=== PATIENT | female | born 1935 | race Caucasian/White ===

== ENCOUNTER 2017-04-11 17:47 | Emergency (ER) | payer MEDICARE, OTHER ==
[2017-04-11] MEDS ORDERED: NS 0.9% 1000 ML* 2,000 ML IV ONE (19:37)
[2017-04-11 19:52] LABS: Urine Bacteria Absent (Absent); Urine Bilirubin Negative (Negative); Urine Glucose Negative (Negative); Urine Nitrite Negative (Negative)
--- NOTE | 2017-04-11 19:56 | RAD ---
Indication: Hypertension. Single frontal view of the chest performed at 1940 hours was reviewed. Comparison is made with previous exam dated June 10, 2008. No mediastinal shift is noted. There is cardiomegaly noted. Lung hoover demonstrate no pleural fluid, pneumonia or pneumothorax. IMPRESSION: NO ACTIVE CARDIOPULMONARY DISEASE IS NOTED.
--- NOTE | 2017-04-11 20:24 | RAD ---
Indication: Hypertension, loss of peripheral vision. CT of the brain was performed without IV contrast. No prior studies available for comparison. Ventricular structures are midline. No midline shift is noted. The extraction spaces are unremarkable. There is no evidence of intracranial mass or hemorrhage. No other high or low density lesions are identified. Mastoid air cells and paranasal sinuses are otherwise unremarkable. IMPRESSION: No intracranial mass or hemorrhage is noted.
[2017-04-11 20:31] LABS: Hematocrit 41 % (35-47); Hemoglobin 13.7 g/dl (12.0-16.0); Mean Corpuscular HGB Conc 33 g/dl (31-36); Mean Corpuscular Hemoglobin 32 pg (27-31); Mean Corpuscular Volume 96 fL (80-97); Mean Platelet Volume 7 um3 (7.4-10.4); Red Cell Distribution Width 13 % (10.5-15); White Blood Count 8.3 10^3/ul (3.5-10.8)
[2017-04-11 20:47] LABS: Albumin 4.2 g/dL (3.2-5.2); BUN/Creatinine Ratio 20.3 (8-20); Calcium 9.1 mg/dL (8.6-10.3); EGFR African American 114.5 (>60); EGFR Non-African American 89.1 (>60); Globulin 3.3 g/dL (2-4); Potassium 3.7 mmol/L (3.5-5.0); Total Bilirubin 1.2 mg/dL (0.2-1.0); Total Protein 7.5 g/dL (6.4-8.9)
[2017-04-11 20:49] LABS: Troponin I 0.01 ng/mL (<0.04)
[2017-04-11 20:57] LABS: HDL Cholesterol 60.7 mg/dL
[2017-04-11] MEDS ORDERED: Iohexol 350* (CONTRAST) 500 ML MDV IV ONE (21:40)
[2017-04-11 21:57] LABS: Erythrocyte Sed Rate 10 mm/Hr (0-40)
--- NOTE | 2017-04-11 22:39 | RAD ---
Indication: Transient visual field loss. Contrast: Administered 80.0 ml of OMNIPAQUE 350 mgi/ml CTA of the neck and head was performed after IV contrast demonstration. Coronal and sagittal reconstructed images were obtained. 3-D reconstructive images were obtained. Atherosclerotic aorta is noted. There is an apparent right subclavian artery noted. The common carotid artery demonstrates no evidence of intimal wall thickening in either internal carotid artery although atherosclerosis is noted at the origin of both common carotid arteries. There is calcification at the carotid bulb bilaterally. No significant stenosis is noted. No evidence of carotid artery dissection is noted. The intracranial carotid arteries demonstrates atherosclerosis in the intracavernous portion. CTA of the head demonstrates normal anterior and middle cerebral arteries with no evidence of aneurysmal dilatation. No branch occlusion is identified. Basilar artery and posterior cerebral arteries are unremarkable. IMPRESSION: There is an aberrant right subclavian artery noted. Calcific plaque is noted at the origins of both common carotid arteries are arising from the aorta. Calcifications are noted at the origins of both internal carotid arteries. CTA of the head demonstrates no aneurysmal dilatation or branch occlusion.
[2017-04-11 23:10] VITALS: BP 191/69
--- NOTE | 2017-04-12 10:54 | ED ---
Talha Hernandez Rebecca, scribed for Giulia Valdes MD on 04/11/17 at 1904 . Throat Pain/Nasal Congestion - HPI Summary HPI Summary: Pt is an 81 y/o F who presents to ED accompanied by with a CC of intermittent R eye blind spot. Sx began suddenly today at 0900, lasted until approximately 1130, when it spontaneously resolved. Another less acute episode began suddenly at 1730 en route to the ED, which spontaneously resolved in 30 minutes. Blind spot is not currently present. Sx aggravated by nothing, alleviated by spontaneous resolution. Additionally c/o intermittent acute on chronic "waviness" and "sparkles" in her vision that has been increasing in frequency in the last 2 days. States that she has experienced similar episodes of "waviness" for the past several years and when evaluated, was deemed not concerning. Her additionally reports difficulty focusing with her R eye. Currently ranks pain as 0/10, being in no pain. Denies any changes in urinary frequency. Denies slurred speech, facial droop, aphasia. Denies MARKS. PMHx HTN (takes Deltiazam - took this AM as usual). Reports that her BP at home has been normal, yesterday it was approximately 135 systolic. Is not on any blood thinners. Does not take ASA. Takes Amoxicillin for any procedures because of bilateral knee replacements. She was evaluated earlier today by Dr. Flores's office at 1045 this morning who, per her , reported that "physically the eye looked fine" and that "there were floaters in it, but there were no issues inside the cell itself." Gave Dx of vitreous degeneration, bilateral and migraine with aura, not intractable, w/ o status migrainosus. After consulting with her PCP, Dr. Bhakta, she was advised the pt be evaluated in the ED to r/o TIA. - History of Current Complaint Chief Complaint: EDEyeProblem Hx Obtained From: Patient, Family/Clerical Warehouseman - (Pined[place]) Onset/Duration: Sudden Onset, Resolved Severity: Moderate Cough: None - Epiglottits Risk Factors Epiglottis Risk Factors: Negative - Allergies/Home Medications Allergies/Adverse Reactions: Allergies Allergy/AdvReac Type Severity Reaction Status Date / Time Nitrofurantoin Allergy Intermediate Rash Verified 04/11/17 17:49 [From Macrodantin] Morphine Allergy Mild Nausea Verified 04/11/17 17:49 PMH/Surg Hx/FS Hx/Imm Hx Previously Healthy: No Endocrine/Hematology History: Denies: Hx Diabetes Cardiovascular History: Reports: Hx Hypertension Respiratory History: Denies: Hx Asthma, Hx Chronic Obstructive Pulmonary Disease (COPD) History: Denies: Hx Dialysis Musculoskeletal History: Reports: Hx Arthritis - CORA KNEE AND ONE HIP REPLACED Sensory History: Reports: Hx Contacts or Glasses - GLASSES, Hx Hearing Aid Opthamlomology History: Reports: Hx Contacts or Glasses - GLASSES Neurological History: Denies: Hx Dementia, Hx Seizures Psychiatric History: Reports: Hx Anxiety - OK WITH MEDS - Surgical History Surgery Procedure, Year, and Place: 2002 WISDOM TEETH [place]. 2007 L TOTAL KNEE [facility]. 2008 RT TOTAL KNEE [facility]. 2010 L TOTAL HIP [facility]. Hx Anesthesia Reactions: No Infectious Disease History: No Infectious Disease History: Denies: Traveled Outside the [place] in Last 30 Days - Family History Known Family History: Positive: Hypertension - Social History Occupation: Retired Lives: With Family Alcohol Use: Rare Substance Use Type: Reports: None Smoking Status (MU): Never Smoked Tobacco Review of Systems Constitutional: Negative Positive: Other - Intermittent R eye blind spot - resolved; intermittent acute on chronic "waviness" and "sparkles" in vision - resolved Cardiovascular: Negative Respiratory: Negative Negative: frequency Skin: Negative Neurological: Other - Denies facial droop, aphasia Negative: Headache, Slurred Speech All Other Systems Reviewed And Are Negative: Yes Physical Exam Triage Information Reviewed: Yes Vital Signs On Initial Exam: Initial Vitals Temp Pulse Resp BP Pulse Ox 98.6 F 66 16 187/78 98 04/11/17 17:51 04/11/17 17:51 04/11/17 17:51 04/11/17 17:51 04/11/17 17:51 Vital Signs Reviewed: Yes Appearance: Positive: No Pain Distress, Well-Nourished, Ill-Appearing - Mild Skin: Positive: Warm, Skin Color Reflects Adequate Perfusion, Dry Eyes: Positive: IVON, Conjunctiva Clear, Other: - Pupils are 3 mm; Discs are sharp and flat and there is no hemorrhage; Normal visual hoover by confrontation ; Pt Did not do cover/uncover test ENT: Positive: Normal ENT inspection, Pharynx normal, TMs normal Neck: Positive: Supple Respiratory/Lung Sounds: Positive: Clear to Auscultation, Breath Sounds Present , Other - No respiratory distress Cardiovascular: Positive: RRR, Other - Brisk capillary refill, Pulses normal. Negative: Murmur Abdomen Description: Positive: Nontender, No Organomegaly, Soft Musculoskeletal: Positive: Normal, Strength/ROM Intact Neurological: Positive: Sensory/Motor Intact - Motor function 5/5, Alert, Oriented to Person Place, Time, CN Intact II-III, Reflexes Intact, Normal Gait. Negative: Receptive Aphasia, Expressive Aphasia, Disoriented, Facial Droop, Focal Deficit @, Slurred Speech Psychiatric: Positive: Normal - Elizabeth Coma Scale Coma Scale Total: 15 Diagnostics - Vital Signs Vital Signs Temp Pulse Resp BP Pulse Ox 04/11/17 17:51 98.6 F 66 16 187/78 98 - Laboratory Lab Results: Lab Results 04/11/17 04/11/17 04/11/17 Range/Units 17:51 20:26 20:26 WBC 8.3 (3.5-10.8) 10^3/ul RBC 4.30 (4.0-5.4) 10^6/ul Hgb 13.7 (12.0-16.0) g/dl Hct 41 (35-47) % MCV 96 (80-97) fL MCH 32 H (27-31) pg MCHC 33 (31-36) g/dl RDW 13 (10.5-15) % Plt Count 288 (150-450) 10^3/ul MPV 7 L (7.4-10.4) um3 Neut % (Auto) 65.6 (38-83) % Lymph % (Auto) 23.7 L (25-47) % Edmunds % (Auto) 8.5 (1-9) % Eos % (Auto) 1.2 (0-6) % Baso % (Auto) 1.0 (0-2) % Absolute Neuts (auto) 5.5 (1.5-7.7) 10^3/ul Absolute Lymphs (auto) 2.0 (1.0-4.8) 10^3/ul Absolute Monos (auto) 0.7 (0-0.8) 10^3/ul Absolute Eos (auto) 0.1 (0-0.6) 10^3/ul Absolute Basos (auto) 0.1 (0-0.2) 10^3/ul Absolute Nucleated RBC 0 10^3/ul Nucleated RBC % 0 ESR 10 (0-40) mm/Hr INR (Anticoag Therapy) 0.96 (0.89-1.11) APTT 30.2 (26.0-36.3) seconds Sodium (133-145) mmol/L Potassium (3.5-5.0) mmol/L Chloride (101-111) mmol/L Carbon Dioxide (22-32) mmol/L Anion Gap (2-11) mmol/L BUN (6-24) mg/dL Creatinine (0.51-0.95) mg/dL Est GFR ( Amer) (>60) Est GFR (Non-Af Amer) (>60) BUN/Creatinine Ratio (8-20) Glucose (70-100) mg/dL Lactic Acid (0.5-2.0) mmol/L Calcium (8.6-10.3) mg/dL Total Bilirubin (0.2-1.0) mg/dL AST (13-39) U/L ALT (7-52) U/L Alkaline Phosphatase (34-104) U/L Troponin I (<0.04) ng/mL Total Protein (6.4-8.9) g/dL Albumin (3.2-5.2) g/dL Globulin (2-4) g/dL Albumin/Globulin Ratio (1-3) Triglycerides mg/dL Cholesterol mg/dL LDL Cholesterol mg/dL HDL Cholesterol mg/dL Urine Color Yellow Urine Appearance Clear Urine pH 6.0 (5-9) Ur Specific Downey 1.010 (1.010-1.030) Urine Protein Negative (Negative) Urine Ketones Negative (Negative) Urine Blood 2+ H (Negative) Urine Nitrate Negative (Negative) Urine Bilirubin Negative (Negative) Urine Urobilinogen Negative (Negative) Ur Leukocyte Esterase Trace H (Negative) Urine WBC (Auto) Trace(0-5/hpf) (Absent) Urine RBC (Auto) 3+(>10/hpf) H (Absent) Ur Squamous Epith Cells Present H (Absent) Urine Bacteria Absent (Absent) Hyaline Casts Present H (Absent) Urine Glucose Negative (Negative) 04/11/17 04/11/17 Range/Units 20:26 20:26 WBC (3.5-10.8) 10^3/ul RBC (4.0-5.4) 10^6/ul Hgb (12.0-16.0) g/dl Hct (35-47) % MCV (80-97) fL MCH (27-31) pg MCHC (31-36) g/dl RDW (10.5-15) % Plt Count (150-450) 10^3/ul MPV (7.4-10.4) um3 Neut % (Auto) (38-83) % Lymph % (Auto) (25-47) % Edmunds % (Auto) (1-9) % Eos % (Auto) (0-6) % Baso % (Auto) (0-2) % Absolute Neuts (auto) (1.5-7.7) 10^3/ul Absolute Lymphs (auto) (1.0-4.8) 10^3/ul Absolute Monos (auto) (0-0.8) 10^3/ul Absolute Eos (auto) (0-0.6) 10^3/ul Absolute Basos (auto) (0-0.2) 10^3/ul Absolute Nucleated RBC 10^3/ul Nucleated RBC % ESR (0-40) mm/Hr INR (Anticoag Therapy) (0.89-1.11) APTT (26.0-36.3) seconds Sodium 132 L (133-145) mmol/L Potassium 3.7 (3.5-5.0) mmol/L Chloride 94 L (101-111) mmol/L Carbon Dioxide 28 (22-32) mmol/L Anion Gap 10 (2-11) mmol/L BUN 13 (6-24) mg/dL Creatinine 0.64 (0.51-0.95) mg/dL Est GFR ( Amer) 114.5 (>60) Est GFR (Non-Af Amer) 89.1 (>60) BUN/Creatinine Ratio 20.3 H (8-20) Glucose 94 (70-100) mg/dL Lactic Acid 0.6 (0.5-2.0) mmol/L Calcium 9.1 (8.6-10.3) mg/dL Total Bilirubin 1.20 H (0.2-1.0) mg/dL AST 17 (13-39) U/L ALT 14 (7-52) U/L Alkaline Phosphatase 61 (34-104) U/L Troponin I 0.01 (<0.04) ng/mL Total Protein 7.5 (6.4-8.9) g/dL Albumin 4.2 (3.2-5.2) g/dL Globulin 3.3 (2-4) g/dL Albumin/Globulin Ratio 1.3 (1-3) Triglycerides 68 mg/dL Cholesterol 191 mg/dL LDL Cholesterol 117 mg/dL HDL Cholesterol 60.7 mg/dL Urine Color Urine Appearance Urine pH (5-9) Ur Specific Downey (1.010-1.030) Urine Protein (Negative) Urine Ketones (Negative) Urine Blood (Negative) Urine Nitrate (Negative) Urine Bilirubin (Negative) Urine Urobilinogen (Negative) Ur Leukocyte Esterase (Negative) Urine WBC (Auto) (Absent) Urine RBC (Auto) (Absent) Ur Squamous Epith Cells (Absent) Urine Bacteria (Absent) Hyaline Casts (Absent) Urine Glucose (Negative) Result Diagrams: 04/11/17 20:26 04/11/17 20:26 Lab Statement: Any lab studies that have been ordered have been reviewed, and results considered in the medical decision making process. - Radiology CXR Xray Interpretation: No Acute Changes - No active cardiopulmonary disease is noted. Radiology Interpretation Completed By: Radiologist - CT Brain CT CT Interpretation: No Acute Changes - No intracranial mass or hemorrhage is noted. CT Interpretation Completed By: Radiologist Head CTA CT Interpretation Completed By: Radiologist - There is an aberrant right subclavian artery noted. Calcific plaque is noted at the origins of both common carotid arteries are arising from the aorta. Calcifications are noted at the origins of both internal carotid arteries. CTA of the head demonstrates no aneurysmal dilatation or branch occlusion. - EKG 2037 Cardiac Rate: NL - 66 bpm EKG Rhythm: Sinus Rhythm EKG Interpretation: New RBBB, new 1st degree AV block compared to previous EKG Comparison: No Significant Change - No acute changes from prevous EKG on 08/28/2008 Re-Evaluation - Re-Evaluation First Eval Re-Evaluation Time: 20:46 Change: Improved Comment: Informed pt and of current lab results and consultation with Dr. Cramer. No MARKS. No visual symptoms. BP is 201/79. Second Eval Re-Evaluation Time: 22:02 Change: Improved Comment: C/o zig zag pattern in vision of R eye. Denies any sx in the L eye. In cover/uncover there is no loss of vision. BP is 170/90. Pulse is 73 bpm. Third Eval Re-Evaluation Time: 23:02 Change: Improved Comment: BP continues to be elevated, but she is asymptomatic and feels well. EENT Course/Dx - Course Course Of Treatment: Pt is an 81 y/o F who presents to the ED with her with a CC of intermittent R eye blind spots that began suddenly at 0900 this morning, with a total of 2 episodes, the first lasting 2 hours and the second beginning at 1730 and lasting 30 minutes. Both alleviated by spontaneous resolution. Additionally c/o intermittent "waviness" and "sparkles" that have been present for multiple years, but increasing in frequency in the last 2 days. reports she notes difficulty focusing with her R eye. Denies MARKS, slurred speech, aphasia, facial droop. Denies changes in urinary frequency. Pt is not on any blood thinners. She does not take ASA daily. Evaluated by Dr. Flores's office today with Dx of of vitreous degeneration, bilateral and migraine with aura, not intractable, w/o status migrainosus. Advised to be evaluated in the ED by PCP to r/o TIA. Pt medications reviewed this visit. Allergies noted. High blood pressure noted. Discussed care of pt with Dr. Cramer, neurologist, who advised administration of ASA and further workup including a CTA neck. UA revealed: urine color: yellow, urine pH: 6.0, urine blood: 2+ H, Leukocyte esterase: Trace H, urine RBC: 3+, squamous epithelial cells: present H, hyaline casts: present H. CXR and Brain CT reveal no acute findings. ESR 10. CTA reveals: "There is an aberrant right subclavian artery noted. Calcific plaque is noted at the origins of both common carotid arteries are arising from the aorta. Calcifications are noted at the origins of both internal carotid arteries. CTA of the head demonstrates no aneurysmal dilatation or branch occlusion." Personal communication with Dr. Kearney reveals less than 50% stenosis of the carotids. Pt will be D/C to home with a Dx of ocular migraine with a follow up with her PCP in 2 days and a follow up with neurology as soon as possible. - Differential Diagnoses Differential Diagnoses: Other - TIA, CVA, temporal arteritis, migraine - Diagnoses Provider Diagnoses: Ocular migraine - Provider Notifications Discussed Care of Patient with: Dr. Cramer, neurologist, who advised ASA and further workup including a CTA neck. Time Discussed With Above Provider: 20:35 - Critical Care Time Critical Care Time: 30-74 min Discharge - Discharge Plan Condition: Stable Disposition: HOME Patient Education Materials: Ocular Migraine (ED) Referrals: Diallo Cramer MD [Medical Doctor] - As Soon As Possible Boogie Bhakta MD [Primary Care Provider] - 2 Days Additional Instructions: Dr. valdes consulted with Dr. Cramer, the neurologist, richard about your care. He recommends that you take aspirin 325mg daily, and that you have definite follow up with neurology. Your symptoms may be related to migraine. You will also want good control of your blood pressure so follow up with Dr. Bhakta in 1-2 days regarding your blood pressure. We have given you a copy of the CTA report of your head and neck which does not show a critical carotid stenosis. Your ESR is 10 (normal) so we are not worried about temporal arteritis for you. There is no evidence for a stroke on the studies done richard. Return to the ER if you have any new or worsening symptoms. NIH Scale - NIH Scale Level of Consciousness: Alert/Keenly Responsive Ask Patient the Month and His/Her Age: Both Correct Ask Pt to Open/Close Eyes and Break Out Man/Release Non-Paretic Hand: Both Correctly Best Gaze (Only Horizontal Eye Movement): Normal Visual Field Testing: No Visual Loss Facial Paresis-Pt to Smile & Close Eyes or Grimace Symmetry: Normal/Symmetrical Motor Function - Right Arm: No Drift-Holds 10 Seconds Motor Function - Left Arm: No Drift-Holds 10 Seconds Motor Function - Right Leg: No Drift-Holds 10 Seconds Motor Function - Left Leg: No Drift-Holds 10 Seconds Limb Ataxia-Must be out of Proportion to Weakness Present: Absent Sensory (Use Pinprick to Test Arms/Legs/Trunk/Face): Normal Best Language (Describe Picture, Name Items): No Aphasia Dysarthria (Read Several Words): Normal Extinction and Inattention: No Abnormality Total Score: 0 The documentation as recorded by the scribe, DiFabio,Kelly accurately reflects the service I personally performed and the decisions made by me, Giulia Valdes MD.
== END 2017-04-11 23:20 | disposition home or self-care (01) ==
LOC: ED 17:47
DX: G43.909 Migraine, unspecified, not intractable, without status migrainosus (principal)
CPT/HCPCS: 36415; 70450; 70496; 70498; 71010; 80053; 80061; 81003; 81015; 83605; 84484; 85025; 85610; 85652; 85730; 87086; 93005; 99284; Q9967

== ENCOUNTER 2017-04-17 19:15 | Observation (INO) | payer MEDICARE, OTHER ==
--- NOTE | 2017-04-17 19:47 | RAD ---
INDICATION: Vision loss COMPARISON: Most recent comparison chest x-rays dated April 11, 2017 TECHNIQUE: Single AP portable view of the chest was obtained. FINDINGS: Image quality is compromised due to the relative inferiority of a portable chest x-ray. The heart and mediastinum exhibit normal size and contour. The lungs are grossly clear. There is no evidence of a large pleural effusion. Visualized bones are normal for the patient's age. IMPRESSION: No radiographic evidence for acute cardiopulmonary abnormality on this portable chest x-ray.
[2017-04-17 20:19] LABS: Hematocrit 40 % (35-47); Hemoglobin 13.2 g/dl (12.0-16.0); Mean Corpuscular HGB Conc 33 g/dl (31-36); Mean Corpuscular Hemoglobin 31 pg (27-31); Mean Corpuscular Volume 95 fL (80-97); Mean Platelet Volume 7 um3 (7.4-10.4); Red Blood Count 4.19 10^6/ul (4.0-5.4); Red Cell Distribution Width 13 % (10.5-15); White Blood Count 7.5 10^3/ul (3.5-10.8)
[2017-04-17 20:38] LABS: ALT 13 U/L (7-52); Alkaline Phosphatase 54 U/L (34-104); BUN/Creatinine Ratio 29.3 (8-20); Blood Urea Nitrogen 17 mg/dL (6-24); C Reactive Protein < 1.00 mg/L (< 5.00); CO2 Carbon Dioxide 25 mmol/L (22-32); Calcium 8.9 mg/dL (8.6-10.3); Chloride 95 mmol/L (101-111); EGFR African American 128.3 (>60); EGFR Non-African American 99.8 (>60); Globulin 3.3 g/dL (2-4); Glucose 91 mg/dL (70-100); Lipase 12 U/L (11.0-82.0); Sodium 124 mmol/L (133-145); Total Protein 7.3 g/dL (6.4-8.9)
[2017-04-17 20:47] LABS: Troponin I 0.06 ng/mL (<0.04)
[2017-04-17 21:06] LABS: TSH (Thyroid Stimulating Horm) 2.99 mcIU/mL (0.34-5.60)
--- NOTE | 2017-04-17 21:38 | ED ---
Hu Hernandez Erika, scribed for Alberto Brito MD on 04/17/17 at 1959 . Neurological HPI - HPI Summary HPI Summary: Patient is an 81-year-old female presenting to the ED with a CC of visual changes. Patient reports that she has had "sparkles and waves" visible in her right eye for a few years. On 04/11/2017 in the morning, pt was unable to see out of the right eye, so saw Dr. Flores. Dr. Flores said the eye was intact. Pt also notes that her fingers on her right hand were pale with paresthesias - this has since resolved. Dr. Bhakta, pt's PCP, recommended pt go to the ED to r/ o stroke. Pt came to the ED, and CT was negative for stroke at that time. Pt made an appointment with Dr. Cramer the next day who ordered an MRI which was completed today at 18:45. MRI showed acute to subacute infarction involving the left occipital lobe, so patient was sent to the ED. Pt describes the course of events of her vision since 04/11 as follows: 1. unable to see out of her right eye, then 2. "wavy lines" in right visual field, then 3. vision from right eye is slightly blurred, which is how it currently is. Pt denies focal weakness or numbness in her arms or legs besides the initial paresthesia in her right hand fingers. Pt walks with a cane at baseline. She takes 324 mg ASA daily, diltiazem , omeprazole, and just started magnesium per recommendation of Dr. Cramer. Pt denies known Hx A Fib, though states she sees Dr. Estrada and is unsure why. - History of Current Complaint Chief Complaint: EDNeurologicalDeficit Stated Complaint: POSSIBLE STROKE Time Seen by Provider: 04/17/17 19:17 Hx Obtained From: Patient, Family/Manager Small Business - Onset/Duration: Gradual Onset, Started days ago - 6 days Timing: Constant Onset Severity: Moderate Current Severity: Mild Pain Intensity: 0 Character: Visual Changes Aggravating: Nothing Alleviating: Nothing Associated Signs and Symptoms: Positive: Visual Changes - Allergy/Home Medications Allergies/Adverse Reactions: Allergies Allergy/AdvReac Type Severity Reaction Status Date / Time Nitrofurantoin Allergy Intermediate Rash Verified 04/16/17 14:30 [From Macrodantin] Morphine Allergy Mild Nausea Verified 04/16/17 14:30 PMH/Surg Hx/FS Hx/Imm Hx Endocrine/Hematology History: Denies: Hx Diabetes Cardiovascular History: Reports: Hx Hypertension - ON MEDS Denies: Hx Pacemaker/ICD Respiratory History: Denies: Hx Asthma, Hx Chronic Obstructive Pulmonary Disease (COPD) History: Denies: Hx Dialysis, Hx Renal Disease Musculoskeletal History: Reports: Hx Arthritis - CORA KNEE AND ONE HIP REPLACED Sensory History: Reports: Hx Contacts or Glasses - GLASSES, Hx Hearing Aid Opthamlomology History: Reports: Hx Contacts or Glasses - GLASSES Neurological History: Denies: Hx Dementia, Hx Seizures Psychiatric History: Reports: Hx Anxiety - OK WITH MEDS, Hx Panic Disorder - ANXIETY ATTACKS - Surgical History Surgery Procedure, Year, and Place: 2002 WISDOM TEETH [place]. 2007 L TOTAL KNEE [facility]. 2008 RT TOTAL KNEE [facility]. 2010 L TOTAL HIP [facility]. R TOTAL HIP Hx Anesthesia Reactions: No Infectious Disease History: No Infectious Disease History: Denies: Traveled Outside the [place] in Last 30 Days - Family History Known Family History: Positive: Hypertension - Social History Alcohol Use: Rare Substance Use Type: Reports: None Smoking Status (MU): Never Smoked Tobacco Review of Systems Positive: Blurred Vision - R eye Positive: Paresthesia - right hand - resolved. Negative: Weakness, Numbness All Other Systems Reviewed And Are Negative: Yes Physical Exam Triage Information Reviewed: Yes Vital Signs On Initial Exam: Initial Vitals Temp Pulse Resp BP Pulse Ox 98.4 F 65 14 186/81 98 04/17/17 19:18 04/17/17 19:18 04/17/17 19:18 04/17/17 19:18 04/17/17 19:18 Vital Signs Reviewed: Yes Appearance: Positive: Well-Appearing, No Pain Distress Skin: Positive: Warm, Skin Color Reflects Adequate Perfusion, Dry Head/Face: Positive: Normal Head/Face Inspection Eyes: Positive: EOMI, IVON ENT: Positive: Normal ENT inspection Neck: Positive: Supple, Nontender Respiratory/Lung Sounds: Positive: Clear to Auscultation, Breath Sounds Present Cardiovascular: Positive: RRR Abdomen Description: Positive: Nontender, Soft Bowel Sounds: Positive: Present Musculoskeletal: Positive: Normal, Strength/ROM Intact Neurological: Positive: Normal, Sensory/Motor Intact, Alert, Oriented to Person Place, Time Psychiatric: Positive: Affect/Mood Appropriate Diagnostics - Vital Signs Vital Signs Temp Pulse Resp BP Pulse Ox 04/17/17 19:18 98.4 F 65 14 186/81 98 - Laboratory Lab Results: Lab Results 04/17/17 04/17/17 04/17/17 Range/Units 20:10 20:10 20:10 WBC 7.5 (3.5-10.8) 10^3/ul RBC 4.19 (4.0-5.4) 10^6/ul Hgb 13.2 (12.0-16.0) g/dl Hct 40 (35-47) % MCV 95 (80-97) fL MCH 31 (27-31) pg MCHC 33 (31-36) g/dl RDW 13 (10.5-15) % Plt Count 275 (150-450) 10^3/ul MPV 7 L (7.4-10.4) um3 Neut % (Auto) 60.1 (38-83) % Lymph % (Auto) 27.6 (25-47) % Dunn % (Auto) 10.3 H (1-9) % Eos % (Auto) 1.3 (0-6) % Baso % (Auto) 0.7 (0-2) % Absolute Neuts (auto) 4.5 (1.5-7.7) 10^3/ul Absolute Lymphs (auto) 2.1 (1.0-4.8) 10^3/ul Absolute Monos (auto) 0.8 (0-0.8) 10^3/ul Absolute Eos (auto) 0.1 (0-0.6) 10^3/ul Absolute Basos (auto) 0.1 (0-0.2) 10^3/ul Absolute Nucleated RBC 0 10^3/ul Nucleated RBC % 0 INR (Anticoag Therapy) 0.94 (0.89-1.11) APTT 19.7 L (26.0-36.3) seconds Sodium 124 L (133-145) mmol/L Potassium TNP Chloride 95 L (101-111) mmol/L Carbon Dioxide 25 (22-32) mmol/L Anion Gap TNP BUN 17 (6-24) mg/dL Creatinine 0.58 (0.51-0.95) mg/dL Est GFR ( Amer) 128.3 (>60) Est GFR (Non-Af Amer) 99.8 (>60) BUN/Creatinine Ratio 29.3 H (8-20) Glucose 91 (70-100) mg/dL Lactic Acid (0.5-2.0) mmol/L Calcium 8.9 (8.6-10.3) mg/dL Magnesium TNP Total Bilirubin 1.00 (0.2-1.0) mg/dL AST TNP ALT 13 (7-52) U/L Alkaline Phosphatase 54 (34-104) U/L Troponin I 0.06 H* (<0.04) ng/mL C-Reactive Protein < 1.00 (< 5.00) mg/L Total Protein 7.3 (6.4-8.9) g/dL Albumin 4.0 (3.2-5.2) g/dL Globulin 3.3 (2-4) g/dL Albumin/Globulin Ratio 1.2 (1-3) Lipase 12 (11.0-82.0) U/L TSH 2.99 (0.34-5.60) mcIU/mL 04/17/17 Range/Units 20:10 WBC (3.5-10.8) 10^3/ul RBC (4.0-5.4) 10^6/ul Hgb (12.0-16.0) g/dl Hct (35-47) % MCV (80-97) fL MCH (27-31) pg MCHC (31-36) g/dl RDW (10.5-15) % Plt Count (150-450) 10^3/ul MPV (7.4-10.4) um3 Neut % (Auto) (38-83) % Lymph % (Auto) (25-47) % Dunn % (Auto) (1-9) % Eos % (Auto) (0-6) % Baso % (Auto) (0-2) % Absolute Neuts (auto) (1.5-7.7) 10^3/ul Absolute Lymphs (auto) (1.0-4.8) 10^3/ul Absolute Monos (auto) (0-0.8) 10^3/ul Absolute Eos (auto) (0-0.6) 10^3/ul Absolute Basos (auto) (0-0.2) 10^3/ul Absolute Nucleated RBC 10^3/ul Nucleated RBC % INR (Anticoag Therapy) (0.89-1.11) APTT (26.0-36.3) seconds Sodium (133-145) mmol/L Potassium Chloride (101-111) mmol/L Carbon Dioxide (22-32) mmol/L Anion Gap BUN (6-24) mg/dL Creatinine (0.51-0.95) mg/dL Est GFR ( Amer) (>60) Est GFR (Non-Af Amer) (>60) BUN/Creatinine Ratio (8-20) Glucose (70-100) mg/dL Lactic Acid 0.7 (0.5-2.0) mmol/L Calcium (8.6-10.3) mg/dL Magnesium Total Bilirubin (0.2-1.0) mg/dL AST ALT (7-52) U/L Alkaline Phosphatase (34-104) U/L Troponin I (<0.04) ng/mL C-Reactive Protein (< 5.00) mg/L Total Protein (6.4-8.9) g/dL Albumin (3.2-5.2) g/dL Globulin (2-4) g/dL Albumin/Globulin Ratio (1-3) Lipase (11.0-82.0) U/L TSH (0.34-5.60) mcIU/mL Result Diagrams: 04/17/17 20:10 04/17/17 20:10 Lab Statement: Any lab studies that have been ordered have been reviewed, and results considered in the medical decision making process. - Radiology CXR Radiology Interpretation Completed By: Radiologist - IMPRESSION: No radiographic evidence for acute cardiopulmonary abnormality on this portable chest x-ray. - EKG 20:13 Cardiac Rate: NL - at 61 bpm EKG Rhythm: Sinus Rhythm Ectopy: None EKG Interpretation: RBBB NIH Scale - NIH Scale Level of Consciousness: Alert/Keenly Responsive Ask Patient the Month and His/Her Age: Both Correct Ask Pt to Open/Close Eyes and Critical Systems Technician/Release Non-Paretic Hand: Both Correctly Best Gaze (Only Horizontal Eye Movement): Normal Visual Field Testing: No Visual Loss Facial Paresis-Pt to Smile & Close Eyes or Grimace Symmetry: Normal/Symmetrical Motor Function - Right Arm: No Drift-Holds 10 Seconds Motor Function - Left Arm: No Drift-Holds 10 Seconds Motor Function - Right Leg: No Drift-Holds 10 Seconds Motor Function - Left Leg: No Drift-Holds 10 Seconds Limb Ataxia-Must be out of Proportion to Weakness Present: Absent Sensory (Use Pinprick to Test Arms/Legs/Trunk/Face): Normal Best Language (Describe Picture, Name Items): No Aphasia Dysarthria (Read Several Words): Normal Extinction and Inattention: No Abnormality Total Score: 0 Course/Dx - Course Course Of Treatment: NO CRITICAL CARE TIME Assessment/Plan: DISCUSSED WITH DR WHITEHEAD. ADMIT HOSPITALIST STABLE - Diagnoses Provider Diagnoses: CVA (cerebral vascular accident) - Physician Notifications Discussed Care of Patient With: Dr. Whitehead (neurology) at 19:58 - discussed plan of care and orders. recommends admission. Dr. Martell (hospitalist) at 20: 12 - agrees to admit. Discharge - Discharge Plan Condition: Stable Disposition: ADMITTED TO [facility] Referrals: Boogie Bhakta MD [Primary Care Provider] - The documentation as recorded by the Hu butler Erika accurately reflects the service I personally performed and the decisions made by me, Alberto Brito MD.
[2017-04-17] MEDS ORDERED: Ondansetron INJ* 2 MG/ML VIAL IV PRN (21:47)
[2017-04-17] MEDS ORDERED: Acetaminophen TAB* 325 MG PO PRN (21:47)
[2017-04-17] MEDS ORDERED: hydrALAZINE IV* 20 MG/ML VIAL IV SLOW PU PRN (22:21)
[2017-04-17 23:27] LABS: Urine Bilirubin Negative (Negative); Urine Glucose Negative (Negative); Urine Nitrite Negative (Negative)
[2017-04-18] MEDS: Heparin VIAL(*) 5000 UNITS/ML VIAL (FIVE THOUSAND) SUBCUT SCH ×3 (00:24→14:46)
[2017-04-18] MEDS: NS 0.9% 1000 ML* 1,000 ML IV SCH ×2 (00:27→07:49)
--- NOTE | 2017-04-18 01:09 | HP ---
HISTORY AND PHYSICAL: DATE OF ADMISSION: 04/17/17 PRIMARY CARE PROVIDER: Dr. Bhakta. CONSULTING NEUROLOGIST: Dr. Gavin. ATTENDING PHYSICIAN WHILE IN THE HOSPITAL: Odin Martell MD* (report dictated by Cami Rubio NP). CHIEF COMPLAINT: Visual disturbance. HISTORY OF PRESENT ILLNESS: Ms. Forrester is an 81-year-old female patient that originally presented last week on Sunday with complaints of visual disturbance, particularly in the right eye. She was having blurry vision. At times she was having spots in her vision. She was not seeing well. She was having difficulty with that right eye and she was having trouble. She came into the ER, was evaluated, they felt this was not tick migraine. She followed up with Dr. Cramer who did order an MRI of the brain which was done today, ultimately showed a small infarct in the occipital lobe. The patient at that point was deferred to the ER. The patient does carry a history of arthritis, anxiety and hypertension. She says that her symptoms have actually improved. She says at times she does have a little bit of trouble reading the paper, but she says that they are nowhere as near as bad as what they were and she denied having any trouble with speech, weakness to one side or denied having any facial drooping. There has been no recent changes to medications. There has been no fevers. There has been no nausea, vomiting. There has been no abdominal pain and she denied having any dysuria or any frequency. She came into the ER, she was evaluated. Because of the findings of the stroke on outpatient imaging, we were asked to evaluate for admission. PAST MEDICAL HISTORY: Significant for: 1. Arthritis. 2. Anxiety. 3. Hypertension. PAST SURGICAL HISTORY: 1. The patient has had a bilateral total knee replacement. 2. Left and right total hip replacement. HOME MEDICATIONS: According to their recall includes: 1. Hydrocortisone 1 application topically b.i.d. to affected area. 2. Diltiazem 180 mg daily. 3. Magnesium 1 tablet daily. 4. Fish oil 1 capsule daily. 5. FiberCon tablet daily. 6. Citracal 1 tablet p.o. q.a.m. 7. Ativan 0.5 mg p.o. daily at bedtime as needed. 8. Vagifem 10 mg vaginally weekly. 9. Omeprazole 20 mg p.o. daily. 10. Nasonex 50 mcg both nares b.i.d. 11. Cranberry 1 dose p.o. daily. ALLERGIES TO MEDICATIONS: Include MACRODANTIN and MORPHINE. FAMILY HISTORY: Mother had a history of COPD. Father's history is unknown. SOCIAL HISTORY: She was a smoker when she was in her 20s. She quit back then. She does drink wine with dinner. Surrogate decision maker is her . REVIEW OF SYSTEMS: There is no documented fever. She denied having any significant weight change. There was no double vision. She denies having any ear discharge. She denies having any rhinorrhea. There was no sore throat. No thyroid enlargement. She denies having any chest pain. There was no orthopnea. No nocturnal dyspnea. There was no abdominal pain. There was no nausea, no vomiting. No dysuria. No frequency. No seizure. No loss of consciousness. No pruritus and no skin ulcerations. Review of 14 systems completed and all others negative. PHYSICAL EXAMINATION GENERAL: At this time, Ms. Forrester is an 81-year-old female patient. She is sitting in the ER stretcher. She does not appear to be in any acute distress. VITAL SIGNS: Blood pressure 186/81, pulse of 65, respirations 14, O2 sat 98%, temperature 98.4. HEENT: Head is atraumatic and normocephalic. Eyes: EOMs are intact. Sclerae anicteric and not pale. Throat: Oral mucosa appears to be moist. No oropharyngeal erythema. NECK: Supple. LUNGS: Clear to auscultation bilaterally. No wheezes, rales or rhonchi. HEART: Sounds S1, S2. Regular rate and rhythm. No murmurs, rubs or gallops. ABDOMEN: Soft, flat, nontender. Bowel sounds present. EXTREMITIES: Pulses 2+ throughout. Able to move all 4 extremities. No peripheral edema. NEUROLOGIC: He is awake, alert and oriented x3. Speech clear. Cranial nerves II through XII were intact. Finished Hardware Erector were equal. Tongue was midline. Finger-to- nose intact bilaterally. [id number] intact bilaterally. She had no gross focal deficits. SKIN: Intact. DIAGNOSTIC STUDIES/LABORATORY DATA: Labs today reveal WBC 7.5, RBC 4.19, hemoglobin 13.2, hematocrit of 40, platelet count of 275,000. INR was 0.94. PTT of 19.7. Sodium is 124, potassium 4.0, chloride of 95. The bicarb was 25, BUN was 17. The creatinine was 0.58. The glucose was 91, lactic was 0.7, calcium was 8.9, mag 2.0, total bili 1.0, AST 16, ALT 13, alk phos 54, troponin 0.06. CRP less than 1. TSH of 2.99. She had a brain MRI today with findings consistent with acute to subacute infarct involving the left occipital lobe, appearance of chronic small vessel disease. She had a CTA of the brain on the . CT of the head demonstrates no aneurysmal dilatation or branch occlusion. She had a CTA of the neck as well which shows no evidence of interval wall thickening in either internal carotid. The patient had an EKG which showed right bundle branch block, rate of 61. No ST elevations or T- wave inversions. Chest x-ray obtained today showed no acute disease. Old medical records were reviewed. ASSESSMENT/PLAN: Mrs. Forrester is an 81-year-old female patient coming into the ER today with complaints of visual disturbance. Had an outpatient MRI which did show an acute to subacute stroke. She will be admitted under observation status for: 1. Cerebrovascular accident. At this point, she is asymptomatic fortunately; however, she does need an echo with bubble study. In addition to this, she does need a lipid panel, A1c in the morning. In addition to this, she would benefit from telemetry monitoring and then follow up with Neurology and continue with aspirin. Check lipid panel and start statin if appropriate for the time being and we will continue with this treatment. 2. Hyponatremia. Etiology unclear. I am going to go ahead and check a serum osmolality urine, electrolytes and will continue to follow. I do not see any specific medications that may be the culprit, so I will continue to follow. 3. Indeterminate troponins. Etiology is unclear. She is not having any chest pain whatsoever. I am going to trend these and will get an echo in the morning. If they do continue to elevate, then consider cardiology consult. She is on an aspirin and will continue this for now. It could be demand ischemia. Her blood pressure when she came in, she did have a blood pressure done here at 2:13 which could be just a ventricular strain, so we will try to get that blood pressure down. I have ordered p.r.n. hydralazine. 4. Hypertension. Again, not well controlled. I would like to get blood pressure down between 140 and 160 range. We will give her p.r.n. hydralazine for blood pressure greater than 170. 5. Anxiety. Continue with supportive care. 6. Arthritis. Continue meds as prescribed. 7. Code status. Full code. 8. Fluids, electrolytes, and nutrition. She can have a heart healthy diet. 9. Code status. Full code. 10. DVT prophylaxis. She is high risk. She will be placed on heparin subcu. TIME SPENT: Time spent on the admission was approximately 70 minutes; greater than half the time was spent [id number] with the patient obtaining my history and physical, other half the time spent going over the plan of care with the patient and implementing plan of care. I did discuss the plan of care with my attending, Dr. Martell; he is in agreement. CAMI RUBIO NP CC: Dr. Bhakta; Dr. Gavin; Dr. Cramer* [id number]/[facility] #: [id number] PING
[2017-04-18 03:59] LABS: Hematocrit 41 % (35-47); Hemoglobin 13.4 g/dl (12.0-16.0); Mean Corpuscular HGB Conc 33 g/dl (31-36); Mean Corpuscular Hemoglobin 32 pg (27-31); Mean Corpuscular Volume 95 fL (80-97); Mean Platelet Volume 7 um3 (7.4-10.4); Red Blood Count 4.26 10^6/ul (4.0-5.4); Red Cell Distribution Width 13 % (10.5-15); White Blood Count 7.2 10^3/ul (3.5-10.8)
[2017-04-18 04:13] LABS: BUN/Creatinine Ratio 20.7 (8-20); Calcium 8.7 mg/dL (8.6-10.3); EGFR African American 128.3 (>60); EGFR Non-African American 99.8 (>60); HDL Cholesterol 54.1 mg/dL; Potassium 3.7 mmol/L (3.5-5.0)
[2017-04-18] MEDS ORDERED: Omeprazole CAP* 20 MG PO SCH (07:30)
[2017-04-18 09:00] VITALS: BP 157/70
[2017-04-18] MEDS ORDERED: Aspirin EC TAB* 325 MG PO SCH (09:00)
[2017-04-18] MEDS ORDERED: METOPROLOL TARTRATE 12.5 MG PO SCH (09:00)
[2017-04-18] MEDS ORDERED: Aspirin EC Low Dose* 81 MG TAB.EC PO SCH (09:00)
[2017-04-18] MEDS ORDERED: DILTIAZEM PO SCH (09:00)
[2017-04-18] MEDS ORDERED: Diltiazem CD CAP* 180 MG PO SCH (09:00)
[2017-04-18] MEDS ORDERED: Lisinopril TAB* 10 MG PO SCH (09:00)
--- NOTE | 2017-04-18 09:57 | ECHO ---
Patient: PENNY PINZON [facility] Rec#: [id number] : 1935 Date: 04/18/2017 Age: 81y Height: 171.45 cm / 67.5 in Weight: 74.84 kg / 164.9 lbs Sex: F BSA: 1.87 Room#: [facility] Admit Date#: 04/17/2017 Type: Inpatient Referring: Kit Rubio NP Reading: Joanie Arreola MD Manager Regional: Dalia Mancia RDCS CC: David Estrada MD CC: Boogie Bhakta MD Transthoracic Echocardiogram Indication: CVA BP: 147/61 HR: 71 Rhythm: NSR Findings History: CVA Technical Comments: The study quality is good. Completed at 0906. Left Ventricle: The left ventricular chamber size is normal. Posterior wall hypertrophy is observed. Global left ventricular wall motion and contractility are within normal limits. The estimated ejection fraction is 55-60%. There is an E to A reversal in the mitral valve flow pattern suggestive of diastolic dysfunction.Complete diastolic measurements not performed. Left Atrium: The left atrium is mildly dilated. Right Ventricle: The right ventricular cavity size is normal. The right ventricular global systolic function is normal. Right Atrium: The right atrium is slightly dilated. There is no patent foramen ovale visualized. A patent foramen ovale is not demonstrated with color Doppler and agitated contrast. Aortic Valve: The aortic valve is trileaflet. The aortic valve leaflets are mildly thickened. There is mild aortic regurgitation. Mitral Valve: The mitral valve leaflets are mildly thickened. There is mild to moderate mitral regurgitation. There is no evidence of mitral stenosis. Tricuspid Valve: The tricuspid valve leaflets are mildly thickened. There is moderate tricuspid regurgitation. The tricuspid regurgitant jet is wall impinging. The right ventricular systolic pressure is estimated at 47 mmHg. There is no tricuspid stenosis. Pulmonic Valve: The pulmonic valve appears normal. There is mild pulmonic regurgitation. There is no pulmonic stenosis. Pericardium: There is a small pericardial effusion. Aorta: There is no dilatation of the ascending aorta. There is no dilatation of the aortic arch. There is no dilation of the aortic root. Pulmonary Artery: The main pulmonary artery appears normal. Venous: The inferior vena cava appears normal in size. There is less than 50% respiratory change in the inferior vena cava dimension. Contrast: Normal saline was used as contrast for the bubble study. Intravenous contrast was used to help determine presence of intracardiac shunting. Conclusions Global left ventricular wall motion and contractility are within normal limits. The estimated ejection fraction is 55-60%. There is an E to A reversal in the mitral valve flow pattern suggestive of diastolic dysfunction. The right ventricular global systolic function is normal. No evidence of cardiopulmonary shunting with color Doppler and bubble study. The aortic valve is trileaflet with mild aortic regurgitation. There is mild to moderate mitral regurgitation. There is moderate tricuspid regurgitation. The right ventricular systolic pressure is estimated at 47 mmHg. Compared with prior echo of 07/21/15, ventricular function is stable, previously greater atrial enlargment, the degree of AI estimated at mild to moderate, MR was moderate, TR stable, PA pressure stable. Measurements Name Value Normal Range RVIDd (AP) 2D 2.8 cm (0.9 - 2.6) RVDdMajor (2D) 3.5 cm (2.2 - 4.4) RAd ISD 4CH 5.9 cm (3.4 - 4.9) RA (A4C)W 3.8 cm (2.9 - 4.6) IVSd (2D) 1 cm (0.6 - 1) LVPWd (2D) 1.2 cm (0.6 - 1) LVIDd (2D) 4 cm (3.6 - 5.4) LVIDs (2D) 2.6 cm - LV FS (2D) 34 % (25 - 45) Aortic Annulus 1.9 cm (1.4 - 2.6) Ao root diameter (2D) 3.3 cm (2.1 - 3.5) Ascending Ao 3.1 cm (2.1 - 3.4) Aortic arch 3 cm (1.8 - 3.4) Descending Ao 0.6 cm - LA dimension (AP) 2D 3.1 cm (2.3 - 3.8) LAd ISD 4CH 6.1 cm (2.9 - 5.3) LA ISD 4CH W 4.2 cm (2.5 - 4.5) Name Value Normal Range LA ESV SP 4CH (A/L) 69 ml - LA ESV SP 2CH (A/L) 56 ml - LA ESV BP (A/L) 64 ml - LA ESV BP (A/L) index 33.91 ml/m2 - LA ESV SP 4CH (MOD) 66 ml - LA ESV SP 2CH (MOD) 54 ml - Name Value Normal Range MV E-wave Vmax 0.6 m/sec - MV deceleration time 269 msec - MV A-wave Vmax 1 m/sec - MV E:A ratio 0.62 ratio - LV septal e' Vmax 0.06 m/sec - LV lateral e' Vmax 0.05 m/sec - LV E:e' septal ratio 10 ratio - LV E:e' lateral ratio 12 ratio - Name Value Normal Range AV Vmax 1.7 m/sec - AV VTI 38 cm - AV peak gradient 11.4 mmHg - AV mean gradient 5.22 mmHg - LVOT diameter 1.8 cm - LVOT Vmax 1.5 m/sec - LVOT VTI 32.8 cm - LVOT peak gradient 8.54 mmHg - LVOT mean gradient 3.65 mmHg - SV LVOT 85 ml - YA (continuity Vmax) 2.8 cm2 - YA (continuity VTI) 2.3 cm2 - AR PHT 499.17 msec - AR peak gradient 98.81 mmHg - Name Value Normal Range TR Vmax 3.11 m/sec - TR peak gradient 23 mmHg - RAP 8 mmHg - RVSP 47 mmHg - IVC diameter 1.3 cm - Name Value Normal Range PV Vmax 1.2 m/sec - PV peak gradient 5.39 mmHg -
[2017-04-18] MEDS ORDERED: Atorvastatin* 40 MG TAB PO SCH (17:00)
[2017-04-18] MEDS ORDERED: Metoprolol Tartrate TAB* 25 MG PO SCH (21:55)
--- NOTE | 2017-04-18 22:25 | CONS ---
NEUROLOGY CONSULTATION REPORT: DATE OF CONSULT: 04/18/17 LOCATION: The patient is an inpatient. REQUESTING PROVIDER: Kit Rubio NP. PRIMARY CARE DOCTOR: Dr. Bhakta. REASON FOR CONSULT: Subacute stroke. HISTORY OF PRESENT ILLNESS: Mrs. Forrester is an 81-year-old woman with a history of hypertension, who was sent to the emergency department yesterday after her outpatient MRI demonstrated subacute stroke in the left occipital lobe. One week ago, she was seen in the emergency department with the onset of intermittent "blind spot in the right eye." She had reported to the emergency department provider that it had begun suddenly and lasted several hours and then resolved and then she had another acute episode. More chronically she has also experienced waviness and sparkles in her vision which have all occurred per her description in the right eye. These phenomenon had been increasing in frequency along with this blind spot on the right side. She had no headache associated with these symptoms. She had no extremity weakness or numbness, no slurring of her speech, no vertigo. She had been seen by an admissions director earlier that day and had been told that the eye physically looked fine. They then contacted Dr. Bhakta's office with the symptoms and were advised to present to the emergency department for evaluation for TIA or stroke. During that evaluation on the , she underwent a CT angiogram of the head and neck as well as a CT scan of the brain. The CT of the brain was personally reviewed and showed no evidence for acute or subacute ischemia. The head and neck CTA similarly showed no significant stenosis or occlusions. She was set up with an outpatient appointment with Dr. Cramer for the following day and he set up an MRI scan of the brain which was performed yesterday and showed a subacute infarct in the left occipital lobe. At the same time, she was started on aspirin 325 mg and has been taking that. She was admitted when her blood pressure was as high as 213/74 in the emergency department yesterday and to undergo echocardiogram as well as telemetry monitoring. She reports today that when reading, the words on the right side of her vision become wavy and seem to have an element of movement to them. She again denies any headache. She uses estrogen cream and wonders if she should discontinue this. PAST MEDICAL HISTORY: Hypertension, arthritis and joint replacements, anxiety. PAST SURGICAL HISTORY: 1. [place] teeth in 2002. 2. Total knee replacement in 2007 and 2008. 3. Total hip replacement in 2010. HOME MEDICATIONS: 1. Nasonex. 2. Cranberry. 3. Omeprazole. 4. Diltiazem 180 mg daily. 5. Calcium carbonate 600/vitamin D daily. 6. Fibercon. 7. Hydrocortisone cream. 8. Fish oil. 9. Magnesium. 10. Ativan 0.5 mg daily p.r.n. 11. Lipitor 40 mg daily (started after this event) 12. Aspirin 325 mg daily. 13. Vaginal estrogen cream. ALLERGIES: NITROFURANTOIN causes a rash, MORPHINE causes nausea. FAMILY HISTORY: Significant for hypertension. SOCIAL HISTORY: She is and lives with her spouse. She rarely drinks alcohol and does not smoke cigarettes. REVIEW OF SYSTEMS: She denies any recent illnesses. She does note that when she first had the onset of these vision symptoms 1 week ago, she also had the simultaneous onset of paleness in her right hand which they think is Raynaud's. PHYSICAL EXAMINATION: Vital Signs: Temperature 98, blood pressure 157/70, heart rate 63, oxygen saturation 96% on room air. She received hydralazine 5 mg IV x1 overnight at 2324. On general exam, she is pleasant and in no acute distress. Her heart is in a regular rate and rhythm with a systolic ejection murmur. There are no carotid bruits. Lungs are clear to auscultation bilaterally. There are arthritic changes in her hands. On neurologic examination, she is fully awake, alert and oriented. Her speech is fluent without dysarthria or aphasia. On cranial nerves testing, pupils are equal, round and reactive from 3 to 2 mg bilaterally. Versions are full without nystagmus. On visual field testing, there is no obvious large visual field cut but when reading print, she notes that the right half of words are blurred and have a sense of waviness and motion in them. Her face is symmetric with full strength. Facial sensation is intact. Hearing is intact to voice. Tongue protrudes in the midline and the palate elevates symmetrically. On motor testing, there is normal tone in the upper and lower extremities. She has a mild intention tremor, right greater than left. Strength is full in the upper and lower extremities with no pronator drift. Sensation is intact to light touch in the upper and lower extremities. Reflexes are 2+ throughout with downgoing toes. There is no ataxia on [id number]-[id number] testing. DIAGNOSTIC STUDIES/LAB DATA: Laboratory data reviewed includes a CBC which is relatively unremarkable. CMP notable for a sodium of 130. Cholesterol study showed triglycerides of 60, cholesterol 170, LDL 104, HDL 54.1 and A1c 5.8. Her urinalysis is negative for infection. Coagulation studies are unremarkable. CT angiogram of the head and neck, and brain CT from 04/11/17 were reviewed as documented above. Brain MRI was personally reviewed and shows an area of restricted diffusion in the left occipital lobe. This area corresponds to an area of increased signal on the FLAIR. She also has periventricular ischemic white matter disease which is relatively mild. Telemetry has shown no signs of atrial fibrillation. Her transthoracic echo showed an EF of 55% to 60% and no patent foramen ovale. IMPRESSION: Luzma Forrester is an 81-year-old woman with history of hypertension, who has had a subacute left occipital stroke. She has been started on aspirin and Lipitor to address her risk factors. In addition, her hypertension will need to be addressed as well with goal systolic of at least 130 and goal diastolic of 80. She will be started on low dose of lisinopril upon discharge today. She follows with Dr. Estrada and needs to make a followup appointment with him as she missed one and forgot to reschedule it. To get a bit longer sample of her cardiac rhythm, she is set up with a 24-hour Holter monitor today upon discharge from the hospital. She and her will be going on a trip at the beginning of April and will be gone for a few weeks and I let them know that as long as she is seen in followup by Dr. Bhakta and possibly by Dr. Estrada as well for continued attention to her blood pressure, I do not think there is a pressing reason why she cannot go on this trip. They also asked about the optimal dose of aspirin and there is no good data to support one dose over the other, so I think it is reasonable for her to take either 81 or 325 mg daily and advised 81 mg. She's worried about bruising. They have a followup scheduled with Dr. Cramer in May and were advised to call the office if there are any new issues before then, but otherwise that should be okay following their trip to [place]. As for the estrogen cream, this should have relatively limited systemic absorption so I don't think it's a big factor here, but if there is not a compelling reason to continue it then she should stop. Thank you for this consultation. CC: Diallo Cramer MD; Dr. Bhakta* [id number]/CPS #: [id number] MTDD
--- NOTE | 2017-04-19 07:48 | DS ---
DISCHARGE SUMMARY: DATE OF ADMISSION: 04/17/17 DATE OF DISCHARGE: 04/18/17 PRIMARY CARE PROVIDER: Dr. Boogie Bhakta. CONSULTING NEUROLOGIST: Dr. Gavin. PRIMARY WORK STATION SUPPORT SPECIALIST: Dr. Estrada. DISCHARGING PROVIDER: ALEX Starkey SUPERVISING PHYSICIAN: Dr. Isabel Otero* (dictated by ALEX Starkey). PRIMARY DISCHARGE DIAGNOSES: 1. Subacute left occipital ischemic stroke. 2. Hypokalemia - resolved. 3. Right visual field disturbance secondary to cerebrovascular accident. SECONDARY DISCHARGE DIAGNOSES: 1. Hypertension - poorly controlled. 2. Anxiety. 3. Osteoarthritis. 4. Hyperlipidemia. MEDICATIONS: 1. Ativan 0.5 mg p.o. at night as needed for sleep. 2. Calcium and vitamin D 1 tablet p.o. daily. 3. Fiber 1 tablet p.o. at bedtime. 4. Fish oil 1 tablet p.o. at meal time. 5. Nasonex 50 mcg intranasally 1 spray in both nares twice daily. 6. Magnesium 1 tablet p.o. daily. 7. Aspirin 81 mg p.o. daily. 8. Atorvastatin 40 mg p.o. daily. 9. Diltiazem 180 mg p.o. daily. 10. Hydrocortisone applied topically twice daily as needed. 11. Lisinopril 10 mg p.o. daily. Medication changes: 1. Start aspirin. 2. Start lisinopril. 3. Start atorvastatin. HOSPITAL IMAGIN. Chest x-ray shows no acute process. 2. MRI of the brain, 04/17/17, demonstrates findings consistent with acute or subacute infarct involving the left occipital lobe and appearance of chronic microvascular disease more diffusely. 2. CTA of the head, 04/11/17, demonstrates an aberrant right subclavian artery , calcific plaque noted within origins of both common carotids. Calcifications are noted along the origins of both internal carotid arteries, but no clinically significant stenosis or occlusion noted. 3. CT of the brain, 04/11/17, demonstrates no intracranial mass or hemorrhage. 4. Transthoracic echocardiogram shows normal left ventricular ejection fraction of 55% to 60% with some diastolic dysfunction, [id number] mitral regurg with a normal bubble study. HOSPITAL COURSE: This is an 81-year-old female with a history of hypertension, who was seen in the emergency department approximately 1 week ago with complaints of blurred vision. Her symptoms were mostly isolated to her right eye. She had actually been seen by her eye doctor earlier in the day, who performed dilated eye exam and was told that her eye appeared to be normal. She underwent a CT and a CTA of the brain in the emergency department, both of which were within normal limits and she was subsequently discharged to home with a followup with Neurology. The patient was subsequently evaluated by Dr. Cramer who recommended initiating aspirin therapy as well as an MRI of the brain, which was completed on the day of admission. MRI of the brain demonstrated what appeared to be a subacute infarct of the left occipital region. The patient was subsequently referred to the emergency department and subsequently admitted to the hospital. At the time of admission, the patient's symptoms were limited to a hole in her right vision. She states that she occasionally gets some blurred region in her right visual field, but all of her symptoms seemed to be limited to her right eye. This does not seem to affect her balance. Denies any speech difficulties, weakness, numbness, tingling, tripping, confusion, etc. The patient underwent echocardiogram which showed a normal bubble study and no significant cardiac abnormalities. CTA and CT were done in the emergency department a week prior, results as listed above and essentially within normal limits. The patient was evaluated by neurologist, Dr. Gavin, during her hospital stay. Fasting lipids demonstrated a total cholesterol of 170 with an LDL of 104. Her blood pressure was noted to be poorly controlled during her hospital stay requiring one dose of hydralazine for systolic pressure greater than 190 mmHg. DISPOSITION AND FOLLOWUP PLAN: The patient is being discharged to home, where she lives with her . Recommend adding lisinopril for additional blood pressure control. The patient requires repeat basic metabolic panel in 5 to 7 days to recheck renal function and potassium after initiating lisinopril. Also , recommend aspirin 81 mg daily and initiating tiwwhirb-kz-itui-dose statin therapy. The patient requires close followup for blood pressure control. Recommend followup evaluation with Ophthalmology for repeat eye exam within the next couple of weeks before she initiates driving, specifically to evaluate visual hoover and whether she has a significant deficit that would inhibit her ability to safely operate a motor vehicle. ALEX STARKEY CC: Dr. Boogie Bhakta; Dr. Estrada; Dr. Cramer* [id number]/[facility] #: [id number] [facility]ITAL[facility]yn
== END 2017-04-18 15:38 | disposition home or self-care (01) ==
LOC: ED 19:15 → MEDTELE 21:44
PROVIDERS: ADMIT Hospitalist; ATTEND Internal Medicine
DX: I63.9 Cerebral infarction, unspecified (principal); E87.6 Hypokalemia; E87.1 Hypo-osmolality and hyponatremia; I69.398 Other sequelae of cerebral infarction; H53.9 Unspecified visual disturbance; I10 Essential (primary) hypertension; E78.5 Hyperlipidemia, unspecified; F41.9 Anxiety disorder, unspecified; R74.8 Abnormal levels of other serum enzymes; I45.10 Unspecified right bundle-branch block; R94.31 Abnormal electrocardiogram [ECG] [EKG]; Z79.82 Long term (current) use of aspirin; Z79.899 Other long term (current) drug therapy; Z88.5 Allergy status to narcotic agent; Z88.8 Allergy status to other drugs, medicaments and biological substances; Z87.891 Personal history of nicotine dependence
CPT/HCPCS: 36415; 71010; 80048; 80053; 80061; 81003; 82533; 83036; 83605; 83690; 83735; 83930; 84443; 84484; 85025; 85610; 85730; 86140; 93005; 93306; 96361; 96372; 96374; 99283; A9270-GY; G0378; J0360; J1644

== ENCOUNTER 2019-09-02 12:15 | Emergency (ER) | payer MEDICARE, OTHER ==
--- OUTSIDE RECORDS SUMMARY | 2019-09-02 12:26 | XMS REPORT | Continuity of Care Document ---
:1935 External Reference #:[id number] Author Name Jennifer Saeed N.P. (transmitted by agent of provider Altagracia Escalera) Address [address] [place] [address] Care Team Providers Name Role Phone Boogie Bhakta III, MD - Internal Care Team Information [place] [facility] Bo Pendleton MD - Urology Care Team Information [place] [phone] Problems Active Problems Provider Date Disorder of lung Damaris Wilson M.D. Onset: 06/02/2012 Basal Cell Carcinoma Skin Of Other & Damaris Wilson M.D. Onset: 01/03/2009 Unspecified Parts Of Face Actinic keratosis Damaris Wilson M.D. Onset: 06/02/2012 Lichenification and lichen simplex chronicus Damaris Wilson M.D. Onset: 06/2012 Disorder of acoustic nerve Damairs Wilson M.D. Onset: 06/02/2008 Note: Neuroma Essential hypertension Boogie Bhakta M.D. Onset: 07/01/2013 Mitral valve disorder David Estrada M.D. Onset: 07/30/2014 Right bundle branch block David Estrada M.D. Onset: 09/15/2015 Social History Type Date Description Comments Sex Unknown Cigarette Use Quit 45 Years Ago ETOH Use 07/01/2013 Consumes 1 glass of wine per day Tobacco Use Start: Unknown End: Patient is a former quit in the Unknown smoker Recreational Drug Use Never Used Drugs Smoking Status Reviewed: 07/22/19 Patient is a former quit in the smoker Exercise Type/Frequency Exercises sporadically Allergies, Adverse Reactions, Alerts Active Allergies Reaction Severity Comments Date Macrodantin 06/17/2007 Percocet HALLUCINATIONS 10/01/2012 Morphine vomiting 05/14/2013 Medications Active Medications SIG Qnty Indications Ordering Provider Date Vitamin B12 TR 1 po qday 30tabs Diallo MoriahGraciela Cramer, 10/02/2018 1000mcg M.DGraicela Tablets ER Lisinopril 1 by mouth every 90tabs David Matamoros 05/22/2018 5mg Tablets day Ana Estrada Aspirin 81 Low Dose 1 tablet po David Matamoros 09/04/2017 daily Ana Estrada 81mg Chewtabs Citracal +D3 take one capsule Unknown 09/04/2017 daily [phone]-mg-Unit Chewtabs Omeprazole 1 po daily 30caps David Matamoros 09/04/2011 20mg Ana Estrada Capsules DR Feldman /2 -1 by mouth 30tabs 300.00 Boogie Bhakta, 0.5mg Tablets every day as M.D. needed Fibercon 1 PO QHS prn Other Physician Practices Amoxicillin 4 tablets 1 hour 16caps Unknown 500mg before dental Capsules work Atorvastatin Calcium Take 1 Tablet 90tabs Boogie Bhakta, Daily M.DGraciela 40mg Tablets History Medications Sulfamethoxazole/Trimethoprim DS 1 by mouth 20tabs R30.0 Boogie Carrasquillo 2018 - 800-160mg Tablets twice a Ana Bhakta 07/07/2019 day Augmentin 1 tab by 10tabs N39.0 Peg 05/13/2019 - 875-125mg Tablets mouth Senner, DO 06/20/2019 twice a day for 5 days Bactrim DS take one 6tabs R30.0 Peg 04/28/2019 - 800-160mg Tablets tab twice Senner, DO 05/12/2019 a day Medications Administered in Office Medication SIG Qnty Indications Ordering Provider Date B-12 Injection Nurse Visit C 10/02/2018 Injection PPD Damaris Wilson M.D. 06/05/2012 Injection Immunizations CPT Code Status Date Vaccine Reaction Lot # 27075 Given 09/02/2018 Fluzone High Dose 31582 Given 09/18/2017 Influenza Virus Vaccine, Pt. tolerayed well. No [id number] Quadrivalent, Split, reaction noted. Preservative Free 30406 Given 08/31/2016 Influ Virus Vaccine, [id number] Quadrivalent, Split Virus, [place] [address] Given 08/30/2015 Influenza Virus Vaccine, [id number] Quadrivalent, Split, Preservative Free 36058 Given 08/30/2015 Pneumococcal Conjugate [id number] Vaccine 13 Valent For Intramuscular Use 85674 Given 09/09/2014 Influenza Virus Vaccine, [id number] Quadrivalent, Split, Preservative Free 10290 Given 08/21/2013 Flu Vaccine Split Virus [id number] Preservative Free For Indiv 3Yr Older Q2038 Given 08/07/2012 Fluzone Vaccine [id number] 81847 Given 05/30/2012 Tdap - [id number] Tetanus/Diptheria/Acellular Pertussis 13195 Given 05/30/2012 Pneumonia Vaccine [id number] Given 09/04/2011 Fluzone Vaccine [id number] 38122 Given 08/30/2010 Influenza Virus 3Yrs & Over 48909 Given 09/16/2009 Influenza Virus 3Yrs & Over 63998 Given 09/17/2008 Influenza Virus 3Yrs & Over 70668 Given 09/17/2008 Influenza Virus 3Yrs & Over 897-48 61214 Given 10/03/2007 Influenza Virus 3Yrs & Over 17244 Given 10/03/2007 Influenza Virus 3Yrs & Over 67375 Vital Signs Date Vital Result Comment 07/22/2019 2:19pm Height 65.25 inches 5'5.25" Weight 150.00 lb with shoes Heart Rate 69 /min BP Systolic Sitting 160 mmHg Lue BP Diastolic Sitting 82 mmHg Lue BP Systolic Standing 160 mmHg Lue BP Diastolic Standing 80 mmHg Lue BMI (Body Mass Index) 24.8 kg/m2 Ejection Fraction 60-65% Echo 07/18/19 07/08/2019 9:11am Height 65.25 inches 5'5.25" Weight 153.50 lb with shoes Heart Rate 64 /min left radial BP Systolic Sitting 178 mmHg ule, reg cuff BP Diastolic Sitting 84 mmHg ule, reg cuff BP Systolic Standing 170 mmHg ule, reg cuff BP Diastolic Standing 82 mmHg ule, reg cuff BMI (Body Mass Index) 25.3 kg/m2 Ejection Fraction 55%-60% echo 04/18/17 Results Test Date Facility Test Result H/L Range Note Urine Culture And 06/20/2019 [facility] Urine Culture SEE RESULT 1, [address] [place] [address] [phone] Ua Routine 06/20/2019 [facility] Ua Specific 1.010 Nebo Ua PH 8 Ua Color juana Ua Appera cloudy Ua WBC ++ Ua Protein + Ua Glucose normal Ua Ketones negative Ua Bilirubin negative Ua Urobilinogen normal Ua Nitrite positive Ua Occult Blood 250 Urine Culture And 05/14/2019 [facility] Urine Culture SEE RESULT 3, [address] [place], [place] [id number] [phone] Urinalysis Profile 05/14/2019 [facility] Urine Color Yellow [address] [place] [address] [phone] Urine Appearance Cloudy Urine Specific Nebo 1.020 Normal 1.010-1.030 Urine pH 5.0 Normal 5-9 Urine Urobilinogen Negative Negative Urine Ketones Negative Negative Urine Protein Negative Negative Urine Leukocytes 3+ Abnormal Negative Urine Blood 1+ Abnormal Negative Urine Nitrite Negative Negative Urine Bilirubin Negative Negative Urine Glucose Negative Negative Urine White Blood Cell 3+(>20/hpf) Abnormal Absent Urine Red Blood Cell 3+(>10/hpf) Abnormal Absent Urine Bacteria 1+ Abnormal Absent Urine Squamous Epithelial Cell Present Abnormal Absent Urine Transitional Epithelial Present Abnormal Absent Urine Culture And 05/13/2019 [facility] Urine Culture SEE RESULT 5, [address] [place], [place] [id number] [phone] Urinalysis Profile 04/28/2019 [facility] Urine Color Ju[place] [address] [place] [address] [phone] Urine Appearance Turbid Urine Specific Nebo 1.013 Normal 1.010-1.030 Urine pH 6.0 Normal 5-9 Urine Urobilinogen Negative Negative Urine Ketones Negative Negative Urine Protein 1+(30 mg/dL) Abnormal Negative Urine Leukocytes 3+ Abnormal Negative Urine Blood 1+ Abnormal Negative Urine Nitrite Negative Negative Urine Bilirubin Negative Negative Urine Glucose Negative Negative Urine White Blood Cell 3+(>20/hpf) Abnormal Absent Urine Red Blood Cell 3+(>10/hpf) Abnormal Absent Urine Bacteria Absent Absent Urine Squamous Epithelial Cell Present Abnormal Absent Urine Culture And 04/28/2019 [facility] Urine Culture SEE RESULT [address] [place] [address] [phone] 1 [id number] 2 SEE RESULT BELOW Name: PENNY PINZON : [address]: Boogie Bhakta III, MD Acct: [id number] Unit: [id number] AGE: 84 Location: [facility] Re06/20/19 SEX: F Status: REG REF SPEC: [id number] SURI: 06/20/19-1120 [facility] DR: Boogie Bhakta III, MD REQ: [id number] RECD: 06/20/19 STATUS: COMP _ SOURCE: URINE SPDESC: ORDERED: Urine Culture COMMENTS: [id number] QUERIES: Urine Source: Random Procedure Result Reported Site Urine Culture Final 06/22/19- 0853 ML Organism 1 KLEBSIELLA PNEUMONIAE [place] Count >100,000 (Many) CFU/ML 1. KLEBSIELLA PNEUMONIAE [facility] RX --------- ------ Ampicillin >=32 R Cefazolin <=4 S Cefepime <=1 S Ceftriaxone <=1 S Ciprofloxacin <=0.25 S Gentamicin <=1 S Levofloxacin <=0.12 S Meropenem <=0.25 S Nitrofurantoin 64 I Tetracycline <=1 S Pipercillin/Tazobactam <=4 S Trimethoprim/Sulfamethoxazole <=20 S Amoxicillin/Clavulanic Acid <=2 S Aztreonam <=1 S Contact the Microbiology Department for any additional antibiotic reporting. * ML - Main Lab . END OF REPORT DEPARTMENT OF PATHOLOGY, [address] [place] [address] Talat Craig M.D. Director [facility] # [id number] 4 SEE RESULT BELOW Name: PENNY PINZON : [address]: Peg Sandhu DO Acct: [id number] Unit: [id number] AGE: 83 Location: [facility] Re05/14/19 SEX: F Status: REG REF SPEC: [id number] SURI: 05/14/19 [facility] DR: Peg Sandhu DO REQ: [id number] RECD: 05/14/19 STATUS: COMP _ SOURCE: URINE SPDESC: ORDERED: Urine Culture Procedure Result Reported Site Urine Culture Final 05/15/19- 1619 ML No growth of clinically significant organisms * - Main Lab . END OF REPORT DEPARTMENT OF PATHOLOGY, [address] [place] [address] Talat Craig M.D. Director [facility] # [id number] 5 REDRAW URINE Verbal to [id number] by [id number] at 1350 on 05/14/19. 6 SEE RESULT BELOW Name: PENNY PINZON : [address]: Peg Sandhu DO Acct: [id number] Unit: [id number] AGE: 83 Location: [facility] Re05/13/19 SEX: F Status: REG REF SPEC: [id number] SURI: 05/13/19-[address]: Peg Sandhu DO REQ: [id number] RECD: 05/13/191321 STATUS: COMP _ SOURCE: URINE SPDESC: ORDERED: Urine Culture COMMENTS: "REDRAW" URINE Verbal to [id number] by [id number] at 1350 on 05/14/19. QUERIES: Urine Source: Clean Catch Procedure Result Reported Site Urine Culture Final 05/15/19- 0954 ML Organism 1 KLEBSIELLA PNEUMONIAE [place] Count >100,000 (Many) CFU/ML 1. KLEBSIELLA PNEUMONIAE [facility] RX --------- ------ Ampicillin >=32 R Cefazolin <=4 S Cefepime <=1 S Ceftriaxone <=1 S Ciprofloxacin <=0.25 S Gentamicin <=1 S Levofloxacin <=0.12 S Meropenem <=0.25 S Nitrofurantoin 64 I Tetracycline <=1 S Pipercillin/Tazobactam <=4 S Trimethoprim/Sulfamethoxazole <=20 S Amoxicillin/Clavulanic Acid <=2 S Aztreonam <=1 S Contact the Microbiology Department for any additional antibiotic reporting. * ML - Main Lab . END OF REPORT DEPARTMENT OF PATHOLOGY, [address] [place] [address] Talat Craig M.D. Director [facility] # [id number] 7 SEE RESULT BELOW Name: PENNY PINZON : [address]: Peg Sandhu DO Acct: [id number] Unit: [id number] AGE: 83 Location: LAB Re04/28/19 SEX: F Status: REG REF SPEC: [id number] SURI: 04/28/19 [facility] DR: Peg Sandhu DO REQ: [id number] RECD: 04/28/19 STATUS: COMP _ SOURCE: URINE SPDESC: ORDERED: Urine Culture Procedure Result Reported Site Urine Culture Final 04/30/19- 08 ML Organism 1 ESCHERICHIA COLI [place] Count >100,000 (Many) CFU/ML 1. ESCHERICHIA COLI [facility] RX --------- ------ Ampicillin <=2 S Cefazolin <=4 S Cefepime <=1 S Ceftriaxone <=1 S Ciprofloxacin <=0.25 S Gentamicin <=1 S Levofloxacin <=0.12 S Meropenem <=0.25 S Nitrofurantoin <=16 S Tetracycline <=1 S Pipercillin/Tazobactam <=4 S Trimethoprim/Sulfamethoxazole <=20 S Amoxicillin/Clavulanic Acid <=2 S Aztreonam <=1 S Contact the Microbiology Department for any additional antibiotic reporting. * ML - Main Lab . END OF REPORT DEPARTMENT OF PATHOLOGY, [address] [place] [address] Talat Craig M.D. Director [facility] # [id number] Procedures Date Code Description Status 07/22/2019 76748 Interrogation Device Eval,Implantable Loop Recorder Completed System 07/18/2019 16284 ECHO Transthoracic, Real-Time 2D With Doppler And Completed Color Flow 07/18/2019 46841 ECHO Transthoracic, Real-Time 2D With Doppler And Completed Color Flow 07/11/2019 214891112 Diabetic Retinal Eye Exam Completed 07/08/2019 48257 EKG Tracing & Interpretation Completed 07/02/2018 099920898 Diabetic Retinal Eye Exam Completed 09/28/2017 950131083 Diabetic Retinal Eye Exam Completed 04/26/2017 481968448 Diabetic Retinal Eye Exam Completed 04/11/2017 132428726 Diabetic Retinal Eye Exam Completed Medical Devices Description No Information Available Encounters Type Date Location Provider Dx Diagnosis Office Visit 07/08/2019 [facility] David Matamoros I10 Essential ( primary) 9:20a Ana Estrada hypertension E78.00 Pure hypercholesterolemia, unspecified I35.1 Nonrheumatic aortic (valve) insufficiency R42 Dizziness and giddiness R03.0 Elevated blood-pressure reading, w/o diagnosis of htn Office Visit 06/20/2019 10:20a [facility] Internal Boogie Carrasquillo R30.0 Dysuria Medicine - Christian Bhakta M.D. 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 07/22/2019 I49.1 Atrial premature depolarization Ica Pacer Schedule 07/22/2019 I34.0 Mitral valve disorder Jennifer Saeed, N.P. 07/22/2019 I71.2 Aneurysm of thoracic aorta Jennifer Saeed, N.P. 07/22/2019 I10 Essential (primary) hypertension Jennifer Saeed, N.P. 07/22/2019 E78.00 Pure hypercholesterolemia, unspecified Jennifer Saeed, N.P. 07/22/2019 I49.1 Atrial premature depolarization Jennifer Saeed, N.P. 07/18/2019 I35.1 Nonrheumatic aortic (valve) insufficiency David Estrada M.D. 07/18/2019 I35.1 Nonrheumatic aortic (valve) insufficiency [place] [facility] Schedule 07/18/2019 I34.0 Mitral valve disorder [place] [facility] Schedule 07/18/2019 I71.2 Aneurysm of thoracic aorta [place] [facility] Schedule 07/08/2019 I10 Essential (primary) hypertension David Estrada M.D. 07/08/2019 E78.00 Pure hypercholesterolemia, unspecified David Estrada M.D. 07/08/2019 I35.1 Nonrheumatic aortic (valve) insufficiency David Estrada M.D. 07/08/2019 R42 Dizziness David Estrada M.D. 07/08/2019 R03.0 Elevated blood-pressure reading without David Estrada M.D. diagnosis of hypertension 06/20/2019 R30.0 Dysuria Boogie Bhakta M.D. 05/13/2019 N39.0 Urinary tract infection, site not Peg Sandhu, specified 04/28/2019 R30.0 Dysuria Peg Sandhu DO Plan of Treatment Future Appointment(s):09/02/2019 10:45 am - Diallo Cramer M.D. at [facility]07/22/2019 - Jennifer Saeed N.P.I35.1 Nonrheumatic aortic (valve) lwlzyzuztrlurW24.0 Mitral valve joswcmemM40.2 Aneurysm of thoracic aortaFollow up:please schedule CT chest please reprint lab order from [facility] 04/20201891T76 Essential (primary) hypertensionRecommendations:Check BP 1x daily a few hours after taking medicine Call if BP consistently > 145E78.00 Pure hypercholesterolemia, unspecifiedRecommendations:Have fasting labs completed.I49.1 Atrial premature depolarizationRecommendations:Your linq shows extra beats called premature atrial contractions. If Dr Estrada thinks this is afib, we may recommend a different blood thinner than aspirin. Functional Status Description No Information Available Mental Status Description No Information Available Referrals Refer to Reason for Referral Status Appt Date Bo Pendleton MD Recurrent UTI sx over the past 2 months Sent 09/08/[address] [place] [address] [address] [place] [address] [phone]
--- OUTSIDE RECORDS SUMMARY | 2019-09-02 12:26 | XMS REPORT | Continuity of Care Document ---
:1935 External Reference #:[id number] Author Name Diallo Cramer M.D. (transmitted by agent of provider Christine Barboza) Address [address], [place] [address] Care Team Providers Name Role Phone Boogie Bhakta III, MD - Internal Care Team Information [employer] Artistic Director Medicine Bo Pendleton MD - Urology Care Team Information [employer] Artistic Director [phone] Problems Active Problems Provider Date Disorder of lung Damaris Wilson M.D. Onset: 06/02/2012 Basal Cell Carcinoma Skin Of Other & Damaris Wilson M.D. Onset: 01/03/2009 Unspecified Parts Of Face Actinic keratosis Damaris Wilson M.D. Onset: 06/02/2012 Lichenification and lichen simplex chronicus Damaris Wilson M.D. 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 800-160mg Tablets Vitamin B12 TR 1 po qday 30tabs Diallo Cramer, 10/02/2018 1000mcg M.DGraciela Tablets ER Lisinopril 1 by mouth every 90tabs David Matamoros 05/22/2018 5mg Tablets day Ana Estrada Aspirin 81 Low Dose 1 tablet po David Matamoros 09/04/2017 daily Ana Estrada 81mg Chewtabs Citracal +D3 take one capsule Unknown 09/04/2017 daily 423-569-568sh-mg-Unit Chewtabs Omeprazole 1 po daily 30caps David Matamoros 09/04/2011 20mg Ana Estrada Capsules DR Feldman /2 -1 by mouth 30tabs 300.00 Boogie Bhakta, 0.5mg Tablets every day as M.DGraciela needed Fibercon 1 PO QHS prn Other [...] Code Status Date Vaccine Reaction Lot # 78086 Given 09/02/2018 Fluzone High Dose 53495 Given 09/18/2017 Influenza Virus Vaccine, Pt. tolerayed well. No [id number] Quadrivalent, Split, reaction noted. Preservative Free 30170 Given 08/31/2016 Influ Virus Vaccine, [id number] Quadrivalent, Split Virus, [place] [address] Given 08/30/2015 Influenza Virus Vaccine, [id number] Quadrivalent, Split, Preservative Free 23107 Given 08/30/2015 Pneumococcal Conjugate [id number] Vaccine 13 Valent For Intramuscular Use 33985 Given 09/09/2014 Influenza Virus Vaccine, [id number] Quadrivalent, Split, Preservative Free 64627 Given 08/21/2013 Flu Vaccine Split Virus [id number] Preservative Free For Indiv 3Yr Older Q2038 Given 08/07/2012 Fluzone Vaccine [id number] 70586 Given 05/30/2012 Tdap - [id number] Tetanus/Diptheria/Acellular Pertussis 64566 Given 05/30/2012 Pneumonia Vaccine Q2038 Given 09/04/2011 Fluzone Vaccine [id number] 74285 Given 08/30/2010 Influenza Virus 3Yrs & Over 37358 Given 09/16/2009 Influenza Virus 3Yrs & Over 19990 Given 09/17/2008 Influenza Virus 3Yrs & Over 80508 Given 09/17/2008 Influenza Virus 3Yrs & Over 897-48 36545 Given 10/03/2007 Influenza Virus 3Yrs & Over 88777 Given 10/03/2007 Influenza Virus 3Yrs & Over 94686 Vital Signs Date Vital Result Comment 09/02/2019 11:04am Height 65.25 inches 5'5.25" Weight 154.00 lb Heart Rate 78 /min BP Systolic Sitting 150 mmHg BP Diastolic Sitting 80 mmHg Respiratory Rate 18 /min BMI (Body Mass Index) 25.4 kg/m2 08/06/2019 9:16am Height 65.25 inches 5'5.25" Weight 152.00 lb Heart Rate 72 /min BP Systolic Sitting 152 mmHg Lue reg cuff BP Diastolic Sitting 75 mmHg Lue reg cuff O2 % BldC Oximetry 96 % BMI (Body Mass Index) 25.1 kg/m2 Results Test Date Facility Test Result H/L Range Note Ua Routine 08/06/2019 [facility] Ua Specific [place] 1.015 Ua PH 6 Ua Color yellow Ua Appera cloudy Ua WBC ++ Ua Protein neg Ua Glucose neg Ua Ketones neg Ua Bilirubin ++ Ua Urobilinogen normal Ua Nitrite positive Ua Occult Blood 250 rigoberto/ul Urine Culture And 08/06/2019 [facility] Urine Culture SEE RESULT [address] [place], [place] [id number] [phone] Urine Culture And 06/20/2019 [facility] Urine Culture SEE RESULT 2, [address] [place] [address] [phone] Ua Routine 06/20/2019 [facility] Ua Specific 1.010 [place] Ua PH 8 Ua Color juana Ua Appera cloudy Ua WBC ++ Ua Protein + Ua Glucose normal Ua Ketones negative Ua Bilirubin negative Ua Urobilinogen normal Ua Nitrite positive Ua Occult Blood 250 Urine Culture And 05/14/2019 [facility] Urine Culture SEE RESULT 4, [address] [place], [place] [address] [phone] Urinalysis Profile 05/14/2019 [facility] Urine Color Yellow [address] [place] [address] [phone] Urine Appearance Cloudy Urine Specific [place] 1.020 Normal 1.010-1.030 Urine pH 5.0 Normal [...] Present Abnormal Absent Urine Culture And 05/13/2019 [facility] Urine Culture SEE RESULT 6, [address] [place] [address] [phone] Urinalysis Profile 04/28/2019 [facility] Urine Color Juaan [address] [place] [address] [phone] Urine Appearance Turbid Urine Specific [place] 1.013 Normal 1.010-1.030 Urine pH 6.0 Normal [...] Present Abnormal Absent Urine Culture And 04/28/2019 [facility] Urine Culture SEE RESULT [address] [place] [address] [phone] 1 SEE RESULT BELOW Name: PENNY PINZON : [address]: Boogie Bhakta III, MD Acct: [id number] Unit: [id number] AGE: 84 Location: [facility] Re08/06/19 SEX: F Status: REG REF SPEC: [id number] SURI: 08/06/[address] [facility] [address]: Boogie Bhakta III, MD REQ: [id number] RECD: 08/06/19 STATUS: COMP _ SOURCE: URINE SPDESC: ORDERED: Urine Culture COMMENTS: [id number] Urine Source: Random Procedure Result Reported Site Urine Culture Final 08/08/19- 0855 ML Organism 1 KLEBSIELLA PNEUMONIAE [place] Count >100,000 (Many) CFU/ML 1. KLEBSIELLA PNEUMONIAE [...] . END OF REPORT DEPARTMENT OF PATHOLOGY, [address] [place] [address] Talat Craig M.D. Director [facility] # [id number] 2 [id number] 3 SEE RESULT BELOW Name: PENNY PINZON : [address]: Boogie Bhakta III, MD Acct: [id number] Unit: [id number] AGE: 84 Location: [facility] Re06/20/19 SEX: F Status: REG REF SPEC: [id number] SURI: 06/20/19-[address] [facility] [address]: Boogie Bhakta III, MD REQ: [id number] RECD: 06/20/19 STATUS: COMP _ SOURCE: URINE SPDESC: ORDERED: Urine Culture COMMENTS: [id number] QUERIES: Urine Source: Random Procedure Result Reported Site Urine Culture Final 06/22/19- 0853 ML Organism 1 KLEBSIELLA PNEUMONIAE [place] Count >100,000 (Many) CFU/ML 1. KLEBSIELLA PNEUMONIAE [...] . END OF REPORT DEPARTMENT OF PATHOLOGY, [address] [place] [address] Talat Craig M.D. Director [facility] # [id number] 4 [id number] 5 SEE RESULT BELOW Name: PENNY PINZON : [address]: Peg Sandhu DO Acct: [id number] Unit: [id number] AGE: 83 Location: [facility] Re05/14/19 SEX: F Status: REG REF SPEC: [id number] SURI: 05/14/19-[address]: Peg Sandhu DO REQ: [id number] RECD: 05/14/190 STATUS: COMP _ SOURCE: URINE SPDESC: ORDERED: Urine Culture Procedure Result Reported Site Urine Culture Final 05/15/19- 1610 ML No growth of clinically significant organisms * ML - Main Lab . END OF REPORT DEPARTMENT OF PATHOLOGY, [address] [place] [address] Talat Craig M.D. Director [facility] # [id number] 6 REDRAW URINE Verbal to [id number] by [email or web address] at 1350 on 05/14/19. 7 SEE RESULT BELOW Name: PENNY PINZON : [address]: Peg Sandhu DO Acct: [id number] Unit: [id number] AGE: 83 Location: [facility] Re05/13/19 SEX: F Status: REG REF SPEC: [id number] SURI: 05/13/19-[address]: Peg Sandhu DO REQ: [id number] RECD: 05/13/19 STATUS: COMP _ SOURCE: URINE SPDESC: ORDERED: Urine Culture COMMENTS: "REDRAW" URINE Verbal to [id number] by [email or web address] at 1350 on 05/14/19. QUERIES: Urine Source: Clean Catch Procedure Result Reported Site Urine Culture Final 05/15/19- 0954 ML Organism 1 KLEBSIELLA PNEUMONIAE [place] Count >100,000 (Many) CFU/ML 1. KLEBSIELLA PNEUMONIAE [...] . END OF REPORT DEPARTMENT OF PATHOLOGY, [address] [place] [address] Talat Craig M.D. Director [facility] # [id number] 8 SEE RESULT BELOW Name: PENNY PINZON : [address]: Peg Sandhu DO Acct: [id number] Unit: [id number] AGE: 83 Location: LAB Re04/28/19 SEX: F Status: REG REF SPEC: [id number] SURI: 04/28/19-[address] [facility] [address]: Peg Sandhu DO REQ: [id number] RECD: 04/28/19 STATUS: COMP _ SOURCE: URINE SPDESC: ORDERED: Urine Culture Procedure Result Reported Site Urine Culture Final 04/30/19- 832 ML Organism 1 ESCHERICHIA COLI [place] Count >100,000 (Many) CFU/ML 1. ESCHERICHIA COLI [...] . END OF REPORT DEPARTMENT OF PATHOLOGY, [address] [place] [address] Talat Craig M.D. Director [facility] # [id number] Procedures Date Code Description Status 07/22/2019 00753 Interrogation Device Eval,Implantable Loop Recorder Completed System 07/22/2019 04106 Interrogation Device Eval,Implantable Loop Recorder Completed System 07/18/2019 58698 ECHO Transthoracic, Real-Time 2D With Doppler And Completed Color Flow 07/18/2019 86968 ECHO Transthoracic, Real-Time 2D With Doppler And Completed Color Flow 07/11/2019 263984071 Diabetic Retinal Eye Exam Completed 07/08/2019 30037 EKG Tracing & Interpretation Completed 07/02/2018 894632699 Diabetic Retinal Eye Exam Completed 09/28/2017 062114035 Diabetic Retinal Eye Exam Completed 04/26/2017 334077337 Diabetic Retinal Eye Exam Completed 04/11/2017 870026858 Diabetic Retinal Eye Exam Completed Medical Devices Description No Information Available Encounters Type Date Location Provider Dx Diagnosis Office Visit 08/06/2019 [facility] Internal Boogie Bhakta, R30.0 Dysuria 9:00a Medicine - Christian Perez N95.1 Menopausal and female climacteric states Office Visit 07/22/2019 2:30p [facility] Jennifer SGraicela I35.1 Nonrheumatic aortic Of [facility] Nicholas Saeed.P. (valve) insufficiency I34.0 Nonrheumatic mitral (valve) insufficiency I71.2 Thoracic aortic aneurysm, without rupture I10 Essential (primary) hypertension E78.00 Pure hypercholesterolemia, unspecified I49.1 Atrial premature depolarization Office Visit 07/08/2019 9:20a [facility] David Matamoros I10 Essential (primary) Ana Estrada hypertension E78.00 Pure hypercholesterolemia, unspecified I35.1 Nonrheumatic aortic (valve) insufficiency R42 Dizziness and giddiness R03.0 Elevated blood-pressure reading, w/o diagnosis of htn Office Visit 06/20/2019 10:20a [facility] Internal Boogie Carrasquillo R30.0 Dysuria Medicine - Christian Bhakta M.D. Office Visit 05/13/2019 10:40a [facility] Internal Peg Sandhu, N39.0 Urinary tract Medicine - Suite DO infection, site R not specified Office Visit 04/28/2019 2:00p [facility] Internal Peg Sandhu R30.0 Dysuria Medicine - Suite DO R Assessments Date Code Description Provider 09/02/2019 Z91.81 History of falling Diallo Cramer M.D. 09/02/2019 R23.8 Other skin changes Diallo Cramer M.D. 08/06/2019 R30.0 Dysuria Boogie Bhakta M.D. 08/06/2019 N95.1 Menopausal and female climacteric states Boogie Bhakta M.D. 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 grafts 07/22/2019 Z95.818 Presence of other cardiac implants and [facility] Pacer Schedule grafts 07/22/2019 I49.1 Atrial premature depolarization David Estrada M.D. 07/22/2019 I35.1 Nonrheumatic aortic (valve) insufficiency Jennifer [...] M.D. 07/18/2019 I35.1 Nonrheumatic aortic (valve) insufficiency [place] [facility] Schedule 07/18/2019 I34.0 Mitral valve disorder [place] [facility] Schedule 07/18/2019 I71.2 Aneurysm of thoracic aorta [place] [facility] Schedule 07/08/2019 I10 Essential (primary) hypertension David Estrada M.D. 07/08/2019 E78.00 Pure hypercholesterolemia, unspecified David Estrada M.D. 07/08/2019 I35.1 Nonrheumatic aortic (valve) insufficiency David Estrada M.D. 07/08/2019 R42 Dizziness David Estrada M.D. 07/08/2019 R03.0 Elevated blood-pressure reading without David Estrada M.D. diagnosis of hypertension 06/20/2019 R30.0 Dysuria Boogie Bhakta M.D. 05/13/2019 N39.0 Urinary tract infection, site not Peg Sandhu DO specified 04/28/2019 R30.0 Dysuria Peg Sandhu DO Plan of Treatment Future Appointment(s):09/03/2019 11:45 am - Diallo Cramer M.D. at [facility]09/02/2019 - Diallo Cramer M.D.Z91.81 History of fallingFollow up:Reschedule for next week, 15 minutes, with me, at medical office [id number] Other skin changes Functional Status Description No Information Available Mental Status Description No Information Available Referrals Refer to Reason for Referral Status Appt Date Bo Pendleton MD Recurrent UTI sx over the past 2 months Sent 09/08/2019 [facility] [place] [address] [place] [address] [phone]
--- OUTSIDE RECORDS SUMMARY | 2019-09-02 12:26 | XMS REPORT | Continuity of Care Document ---
:1935 External Reference #:[id number] Author Name Boogie Bhakta M.D. (transmitted by agent of provider Ingris York) Address [address], [place] [address] Care Team Providers Name Role Phone Boogie Bhakta III, MD - Internal Care Team Information [employer] Medicine Bo Pendleton MD - Urology Care Team Information [employer] [phone] Problems Active Problems Provider Date Disorder of [...] Use Never Used Drugs Smoking Status Reviewed: 08/06/19 Patient is a former quit in the [...] +D3 take one capsule Unknown 09/04/2017 daily [phone]-mg-Unit Chewtabs Omeprazole 1 po daily 30caps David [...] Code Status Date Vaccine Reaction Lot # 08937 Given 09/02/2018 Fluzone High Dose 24799 Given 09/18/2017 Influenza Virus Vaccine, Pt. tolerayed well. No [id number] Quadrivalent, Split, reaction noted. Preservative Free 59596 Given 08/31/2016 Influ Virus Vaccine, [id number] Quadrivalent, Split Virus, [place] [address] Given 08/30/2015 Influenza Virus Vaccine, [id number] Quadrivalent, Split, Preservative Free 25365 Given 08/30/2015 Pneumococcal Conjugate [id number] Vaccine 13 Valent For Intramuscular Use 40880 Given 09/09/2014 Influenza Virus Vaccine, [id number] Quadrivalent, Split, Preservative Free 01970 Given 08/21/2013 Flu Vaccine Split Virus [id number] Preservative Free For Indiv 3Yr Older Q2038 Given 08/07/2012 Fluzone Vaccine [id number] 58415 Given 05/30/2012 Tdap - [id number] Tetanus/Diptheria/Acellular Pertussis 11362 Given 05/30/2012 Pneumonia Vaccine Q2038 Given 09/04/2011 Fluzone Vaccine [id number] 62040 Given 08/30/2010 Influenza Virus 3Yrs & Over 59395 Given 09/16/2009 Influenza Virus 3Yrs & Over 08768 Given 09/17/2008 Influenza Virus 3Yrs & Over 34817 Given 09/17/2008 Influenza Virus 3Yrs & Over 897-48 52799 Given 10/03/2007 Influenza Virus 3Yrs & Over 95884 Given 10/03/2007 Influenza Virus 3Yrs & Over 73667 Vital Signs Date Vital Result Comment 08/06/2019 9:16am Height 65.25 inches 5'5.25" Weight 152.00 lb Heart Rate 72 /min BP Systolic Sitting 152 mmHg Lue reg cuff BP Diastolic Sitting 75 mmHg Lue reg cuff O2 % BldC Oximetry 96 % BMI (Body Mass Index) 25.1 kg/m2 07/22/2019 2:19pm Height 65.25 inches 5'5.25" Weight 150.00 lb with shoes Heart Rate 69 /min BP Systolic Sitting 160 mmHg Lue BP Diastolic Sitting 82 mmHg Lue BP Systolic Standing 160 mmHg Lue BP Diastolic Standing 80 mmHg Lue BMI (Body Mass Index) 24.8 kg/m2 Ejection Fraction 60-65% Echo 07/18/19 Results Test Date Facility Test Result H/L Range Note Ua Routine 08/06/2019 [facility] Ua Specific [place] 1.015 Ua PH 6 Ua Color yellow Ua Appera cloudy Ua WBC ++ Ua Protein neg Ua Glucose neg Ua Ketones neg Ua Bilirubin ++ Ua Urobilinogen normal Ua Nitrite positive Ua Occult Blood 250 rigoberto/ul Urine Culture And 06/20/2019 [facility] Urine Culture SEE RESULT 1, [address] [place] [address] [phone] Ua Routine 06/20/2019 [facility] Ua Specific 1.010 [place] Ua PH 8 Ua Color juana Ua Appera cloudy Ua WBC ++ Ua Protein + Ua Glucose normal Ua Ketones negative Ua Bilirubin negative Ua Urobilinogen normal Ua Nitrite positive Ua Occult Blood 250 Urine Culture And 05/14/2019 [facility] Urine Culture SEE RESULT 3, [address] [place] [address] [phone] Urinalysis Profile 05/14/2019 [facility] Urine [place] [address] [phone] Urine Appearance Cloudy Urine Specific [place] 1.020 Normal 1.010-1.030 Urine pH 5.0 Normal [...] Present Abnormal Absent Urine Culture And 05/13/2019 [facility] Urine Culture SEE RESULT 5, [address] [place] [address] [phone] Urinalysis Profile 04/28/2019 [facility] Urine Color [place] [address] [place] [address] [phone] Urine Appearance Turbid Urine Specific [place] 1.013 Normal 1.010-1.030 Urine pH 6.0 Normal [...] Present Abnormal Absent Urine Culture And 04/28/2019 [facility] Urine Culture SEE RESULT [address] [place] [address] [phone] 1 [id number] 2 SEE RESULT BELOW Name: PENNY PINZON : [address]: Boogie Bhakta III, MD Acct: [id number] Unit: [id number] AGE: 84 Location: [facility] Re06/20/19 SEX: F Status: REG REF SPEC: [id number] SURI: 06/20/19-[address] [facility] [address]: Boogie Bhakta III, MD REQ: [id number] RECD: 06/20/19 STATUS: COMP _ SOURCE: URINE SPDESC: ORDERED: Urine Culture COMMENTS: [id number] QUERIES: Urine Source: Random Procedure Result Reported Site Urine Culture Final 06/22/19- 0853 ML Organism 1 KLEBSIELLA PNEUMONIAE [place] Count >100,000 (Many) CFU/ML 1. KLEBSIELLA PNEUMONIAE [...] . END OF REPORT DEPARTMENT OF PATHOLOGY, [address] [place] [address] Talat Craig M.D. Director [facility] # [id number] 3 [id number] 4 SEE RESULT BELOW Name: PENNY PINZON : [address]: Peg Sandhu DO Acct: [id number] Unit: [id number] AGE: 83 Location: [facility] Re05/14/19 SEX: F Status: REG REF SPEC: [id number] SURI: 05/14/19-[address] [facility] [address]: Peg Sandhu DO REQ: [id number] RECD: 05/14/199776 STATUS: COMP _ SOURCE: URINE SPDESC: ORDERED: Urine Culture Procedure Result Reported Site Urine Culture Final 05/15/19- 1619 ML No growth of clinically significant organisms * ML - Main Lab . END OF REPORT DEPARTMENT OF PATHOLOGY, [address] [place] [address] Talat Craig M.D. Director [facility] # [id number] 5 REDRAW URINE Verbal to [id number] by [email or web address] at 1350 on 05/14/19. 6 SEE RESULT BELOW Name: JEROMYPENNY : [address]: Peg Sandhu DO Acct: [id number] Unit: [id number] AGE: 83 [facility] SEX: F Status: REG REF SPEC: [id number] SURI: 05/13/19-[address]: Peg Sandhu DO REQ: [id number] RECD: 05/13/191321 STATUS: COMP _ SOURCE: URINE SPDESC: ORDERED: Urine Culture COMMENTS: "REDRAW" URINE Verbal to [id number] by [email or web address] at 1350 on 05/14/19. QUERIES: Urine Source: Clean Catch Procedure Result Reported Site Urine Culture Final 05/15/19- 0954 ML Organism 1 KLEBSIELLA PNEUMONIAE [place] Count >100,000 (Many) CFU/ML 1. KLEBSIELLA PNEUMONIAE [...] . END OF REPORT DEPARTMENT OF PATHOLOGY, [address] [place] [address] Talat Craig M.D. Director [facility] # [id number] 7 SEE RESULT BELOW Name: PENNY PINZON : [address]: Peg Sandhu DO Acct: [id number] Unit: [id number] AGE: 83 Location: LAB Re04/28/19 SEX: F Status: REG REF SPEC: [id number] SURI: 04/28/[address]: Peg Sandhu DO REQ: [id number] RECD: 04/28/19 STATUS: COMP _ SOURCE: URINE SPDESC: ORDERED: Urine Culture Procedure Result Reported Site Urine Culture Final 04/30/19- 08 ML Organism 1 ESCHERICHIA COLI [place] Count >100,000 (Many) CFU/ML 1. ESCHERICHIA COLI [...] . END OF REPORT DEPARTMENT OF PATHOLOGY, [address] [place] [address] Talat Craig M.D. Director [facility] # [id number] Procedures Date Code Description Status 07/22/2019 00205 Interrogation Device Eval,Implantable Loop Recorder Completed System 07/22/2019 84083 Interrogation Device Eval,Implantable Loop Recorder Completed System 07/18/2019 89046 ECHO Transthoracic, Real-Time 2D With Doppler And Completed Color Flow 07/18/2019 59825 ECHO Transthoracic, Real-Time 2D With Doppler And Completed Color Flow 07/11/2019 146714982 Diabetic Retinal Eye Exam Completed 07/08/2019 34890 EKG Tracing & Interpretation Completed 07/02/2018 620138778 Diabetic Retinal Eye Exam Completed 09/28/2017 559314998 Diabetic Retinal Eye Exam Completed 04/26/2017 955510422 Diabetic Retinal Eye Exam Completed 04/11/2017 924274377 Diabetic Retinal Eye Exam Completed Medical Devices Description No Information Available Encounters Type Date Location Provider Dx Diagnosis Office Visit 07/22/2019 [facility] Jennifer Saeed, I35.1 Nonrheumatic aortic 2:30p Of Machine Sneller N.P. (valve) insufficiency I34.0 Nonrheumatic mitral (valve) insufficiency I71.2 Thoracic aortic aneurysm, without rupture I10 Essential (primary) hypertension E78.00 Pure hypercholesterolemia, unspecified I49.1 Atrial premature depolarization Office Visit 07/08/2019 9:20a [facility] David Matamoros I10 Essential (primary) Ana Estrada hypertension E78.00 Pure hypercholesterolemia, unspecified I35.1 Nonrheumatic aortic (valve) insufficiency R42 Dizziness and giddiness R03.0 Elevated blood-pressure reading, w/o diagnosis of htn Office Visit 06/20/2019 10:20a [facility] Internal Boogie Carrasquillo R30.0 Dysuria Medicine - Ccmoleg Bhakta M.D. Office Visit 05/13/2019 10:40a [facility] Internal Peg Sandhu, N39.0 Urinary tract Medicine - Suite DO infection, site R not specified Office Visit 04/28/2019 2:00p [facility] Internal Peg Sandhu, R30.0 Dysuria Medicine - Suite DO R Assessments Date Code Description Provider 08/06/2019 R30.0 Dysuria Boogie Bhakta M.D. 08/06/2019 [...] 07/22/2019 I71.2 Aneurysm of thoracic aorta Jennifer Nieto Christophe, N.P. 07/22/2019 I10 Essential (primary) hypertension Jennifer Nieto Christophe, N.P. 07/22/2019 E78.00 Pure hypercholesterolemia, unspecified Jennifer Saeed, N.P. 07/22/2019 I49.1 Atrial premature depolarization Jennifer MajorGraciela Saeed, N.P. 07/18/2019 I35.1 Nonrheumatic aortic (valve) insufficiency David Estrada M.D. 07/18/2019 I35.1 Nonrheumatic aortic (valve) insufficiency [place] [facility] Schedule 07/18/2019 I34.0 Mitral valve disorder [place] [facility] Schedule 07/18/2019 I71.2 Aneurysm of thoracic aorta [place] [facility] Schedule 07/08/2019 I10 Essential (primary) hypertension [...] 10:45 am - Diallo Cramer M.D. at [facility]08/06/2019 - Boogie Bhakta M.D.R30.0 DysuriaNew Medication:Sulfamethoxazole/Trimethoprim DS 800-160 mg - 1 by mouth twice a dayN95.1 Menopausal and female climacteric states Functional Status Description No Information Available Mental Status Description No Information Available Referrals Refer to Dr Reason for Referral Status Appt Date Bo Pendleton MD Recurrent UTI sx over the past 2 months Sent 09/08/[address] [place] [address] [place] [address] [phone]
--- OUTSIDE RECORDS SUMMARY | 2019-09-02 12:26 | XMS REPORT | Continuity of Care Document ---
:1935 External Reference #:[id number] Author Name Nuvia Stack O.D. Address [address] [place] [id number] Care Team Providers Name Role Phone Boogie Bhakta M.D. - Internal Care Team Information Subassemblies Wirer [phone] Medicine Diallo Cramer M.D. - Neurology Care Team Information Subassemblies Wirer [phone] Problems Active Problems Provider Date Gastroesophageal reflux disease Onset: Acoustic neuroma Onset: Vitreous degeneration Nuvia Stack O.D. Onset: 04/11/2017 Migraine with typical aura Nuvia Stack O.D. Onset: 04/11/2017 Ischemic stroke Onset: Visual field defect Nuvia Stack O.D. Onset: 04/26/2017 Homonymous hemianopia Nuvia Stack O.D. Onset: 04/27/2017 Nuclear senile cataract Nuvia Stack O.D. 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 Onset: 2017 degeneration Presbyopia Nuvia Stack O.D. Onset: 07/11/2019 Hypermetropia Nuvia Stack O.D. Onset: 07/11/2019 Social History Type Date Description Comments Sex Unknown ETOH Use Denies alcohol use Tobacco Use Start: Unknown Patient has never smoked Recreational Drug Use Denies Drug Use Smoking Status Reviewed: 07/11/19 Patient has never smoked Allergies, Adverse Reactions, Alerts Active Allergies Reaction Severity Comments Date Macrodantin 04/11/2017 Morphine 09/28/2017 Medications Active Medications SIG Qnty Indications Ordering Provider Date Artificial Tears as needed Nuvia Stack, 07/01/2018 0.1-0.3% O.D. Solution Vitamin B-12 Unknown 1000mcg Tablets Aspirin Low Dose Adult Unknown 81mg Chewtabs Lisinopril Unknown 15mg Tablets Atorvastatin Calcium Unknown 40mg Tablets Fibercon Unknown 625mg Tablets Calcium + D Unknown [id number] Tablets Amoxicillin prn dental Unknown 500mg Capsules Multivitamin Adults Unknown Tablets Diltiazem CD Unknown 180mg Caps ER 24HR Vagifem Unknown 10mcg Tablets Ativan Unknown 0.5mg Tablets Cipro prn Oral SX Unknown 250mg Tablets Cranberry Unknown [id number]-mg-Unit Capsules Fish Oil 1 by mouth every Unknown 1000mg Capsules day Hydrocortisone Unknown 2.5% Cream Omeprazole Unknown 20mg Capsules DR Estradiol Unknown 20mg Pellet Immunizations Description No Information Available Vital Signs Description No Information Available Results Description No Information Available Procedures Description No Information Available Medical Devices Description No Information Available Encounters Description No Information Available Assessments Date Code Description Provider 07/11/2019 H53.461 Homonymous bilateral field defects, right Nuvia Stack O.D. side 07/11/2019 H25.13 Age-related nuclear cataract, bilateral Nuvia Stack O.D. 07/11/2019 H43.813 Vitreous degeneration, bilateral Nuvia Stack O.D. 07/11/2019 H35.3131 Nonexudative age-related macular Nuvia Stack O.D. degeneration, bilateral, early dry stage 07/11/2019 H52.03 Hypermetropia, bilateral Nuvia Stack O.D. 07/11/2019 H52.4 Presbyopia Nuvia Stack O.D. Plan of Treatment 07/11/2019 - Nuvia Stack O.D.H53.461 Homonymous bilateral field defects, right sideComments:Smoking can increase the risk of developing or worsening any eye related disease, as well as affect your overall health. If you are a smoker , we strongly recommend that you quit.If you are not a smoker, we strongly recommend that you do not start.Follow up:1-2 MONTHS RETEST VFH25.13 Age- related nuclear cataract, bilateralComments:You have been diagnosed with cataracts. If you are happy with your vision as it is now, then we willsee you at your next scheduled appointment. If you feel like your vision is getting worse before your scheduled appointment, please call [facility] at .H43.814 Vitreous degeneration, bilateralComments:You have a Posterior Vitreous Detachment. If you have any changes in your floaters or flashing lights , please contact this office.H35.5751 Nonexudative age-related macular degeneration, bilateral, early dry stageComments:You have Macular Degeneration. Please take the AREDs 2 vitamin and check the amsler grid with each eye individually at least twice a week to closely monitor for vision change. If you notice a change invision, please call the office.H52.03 Hypermetropia, bilateralComments:You have Hyperopia, or far sightedness, I have given you a prescription for glasses.H52.4 PresbyopiaComments:You have presbyopia. This is when the lens in your eye loses the ability to change focus, and happens as we age. A pair of reading glasses will help you see up close. Functional Status Description No Information Available Mental Status Description No Information Available Referrals Description No Information Available
--- OUTSIDE RECORDS SUMMARY | 2019-09-02 12:26 | XMS REPORT | Continuity of Care Document ---
:1935 External Reference #:[id number] Author Name David Estrada M.D. (transmitted by agent of provider Kaylen Ward ) Address [address] [facility] [address] [place] [address] Care Team Providers Name Role Phone Boogie Bhakta III, MD - Internal Care Team Information Hair Dresser Medicine Bo Pendleton MD - Urology Care Team Information Hair Dresser [phone] Problems Active Problems Provider Date Disorder of [...] Use Never Used Drugs Smoking Status Reviewed: 07/08/19 Patient is a former quit in the 1960's smoker Exercise Type/Frequency Exercises sporadically Allergies, Adverse Reactions, Alerts Active Allergies Reaction Severity Comments Date Macrodantin 06/17/2007 Percocet HALLUCINATIONS 10/01/2012 Morphine vomiting 05/14/2013 Medications Active Medications SIG Qnty Indications Ordering Provider Date Vitamin B12 TR 1 po qday 30tabs Diallo MajorGraciela Shoaib, 10/02/2018 1000mcg M.DGraciela Tablets ER Lisinopril 1 by mouth every 90tabs David Matamoros 05/22/2018 5mg Tablets day Ana Estrada Aspirin 81 Low Dose 1 tablet po David Matamoros 09/04/2017 daily Ana Estrada 81mg Chewtabs Citracal +D3 take one capsule Unknown 09/04/2017 daily 212-541-506jn-mg-Unit Chewtabs Omeprazole 1 po daily 30caps David Matamoros 09/04/2011 20mg Ana Estrada Capsules DR Feldman 1/2 -1 by mouth 30tabs 300.00 Boogie Bhakta, [...] Code Status Date Vaccine Reaction Lot # 35410 Given 09/02/2018 Fluzone High Dose 30224 Given 09/18/2017 Influenza Virus Vaccine, Pt. tolerayed well. No [id number] Quadrivalent, Split, reaction noted. Preservative Free 90453 Given 08/31/2016 Influ Virus Vaccine, [id number] Quadrivalent, Split Virus, [place] [address] Given 08/30/2015 Influenza Virus Vaccine, [id number] Quadrivalent, Split, Preservative Free 77741 Given 08/30/2015 Pneumococcal Conjugate [id number] Vaccine 13 Valent For Intramuscular Use 52011 Given 09/09/2014 Influenza Virus Vaccine, [id number] Quadrivalent, Split, Preservative Free 30298 Given 08/21/2013 Flu Vaccine Split Virus [id number] Preservative Free For Indiv 3Yr Older Q2038 Given 08/07/2012 Fluzone Vaccine [id number] 83794 Given 05/30/2012 Tdap - [id number] Tetanus/Diptheria/Acellular Pertussis 14996 Given 05/30/2012 Pneumonia Vaccine [id number] Given 09/04/2011 Fluzone Vaccine [id number] 84434 Given 08/30/2010 Influenza Virus 3Yrs & Over 00104 Given 09/16/2009 Influenza Virus 3Yrs & Over 30587 Given 09/17/2008 Influenza Virus 3Yrs & Over 57722 Given 09/17/2008 Influenza Virus 3Yrs & Over 897-48 74116 Given 10/03/2007 Influenza Virus 3Yrs & Over 93000 Given 10/03/2007 Influenza Virus 3Yrs & Over 25286 Vital Signs Date Vital Result Comment 07/08/2019 9:11am Height 65.25 inches 5'5.25" Weight 153.50 lb with shoes Heart Rate 64 /min left radial BP Systolic Sitting 178 mmHg ule, reg cuff BP Diastolic Sitting 84 mmHg ule, reg cuff BP Systolic Standing 170 mmHg ule, reg cuff BP Diastolic Standing 82 mmHg ule, reg cuff BMI (Body Mass Index) 25.3 kg/m2 Ejection Fraction 55%-60% echo 04/18/17 06/20/2019 11:08am Height 65.25 inches 5'5.25" Weight 154.00 lb Heart Rate 67 /min BP Systolic Sitting 127 mmHg BP Diastolic Sitting 72 mmHg BMI (Body Mass Index) 25.4 kg/m2 Results Test Date Facility Test Result H/L Range Note Urine Culture And 06/20/2019 [facility] Urine Culture SEE RESULT 1, [address] [address] [phone] Ua Routine 06/20/2019 [facility] Ua Specific 1.010 [place] Ua PH 8 Ua Color juana Ua Appera cloudy Ua WBC ++ Ua Protein + Ua Glucose normal Ua Ketones negative Ua Bilirubin negative Ua Urobilinogen normal Ua Nitrite positive Ua Occult Blood 250 Urine Culture And 05/14/2019 [facility] Urine Culture SEE RESULT 3, [address] [place] [address] [phone] Urinalysis Profile 05/14/2019 [facility] Urine Color Yellow [address] [place] [address] [phone] Urine Appearance Cloudy Urine Specific [place] 1.020 Normal 1.010-1.030 Urine pH 5.0 Normal [...] Present Abnormal Absent Urine Culture And 05/13/2019 [facility] Urine Culture SEE RESULT 5, [address] [place] [address] [phone] Urinalysis Profile 04/28/2019 [facility] Urine Color Juana [address] [place] [address] [phone] Urine Appearance Turbid Urine Specific [place] 1.013 Normal 1.010-1.030 Urine pH 6.0 Normal [...] Present Abnormal Absent Urine Culture And 04/28/2019 [facility] Urine Culture SEE RESULT [address] [place] [address] [phone] 1 [id number] 2 SEE RESULT BELOW Name: PENNY PINZON : [address]: Boogie Bhakta III, MD Acct: [id number] Unit: [id number] AGE: 84 Location: [facility] Re06/20/19 SEX: F Status: REG REF SPEC: [id number] SURI: 06/20/[address] [facility] [address]: Boogie Bhakta III, MD REQ: [id number] RECD: 06/20/19 STATUS: COMP _ SOURCE: URINE SPDESC: ORDERED: Urine Culture COMMENTS: [id number] QUERIES: Urine Source: Random Procedure Result Reported Site Urine Culture Final 06/22/19- 0853 ML Organism 1 KLEBSIELLA PNEUMONIAE Willow Count >100,000 (Many) CFU/ML 1. KLEBSIELLA PNEUMONIAE [...] . END OF REPORT DEPARTMENT OF PATHOLOGY, [address] [place] [address] Talat Craig M.D. Director [facility] # [id number] 3 [id number] 4 SEE RESULT BELOW Name: PENNY PINZON : [address]: Peg Sandhu DO Acct: [id number] Unit: [id number] AGE: 83 Location: [facility] Re05/14/19 SEX: F Status: REG REF SPEC: [id number] SURI: 05/14/19-[address]: Peg Sandhu DO REQ: [id number] RECD: 05/14/19 STATUS: COMP _ SOURCE: URINE SPDESC: ORDERED: Urine Culture Procedure Result Reported Site Urine Culture Final 05/15/19- 1619 ML No growth of clinically significant organisms * ML - Main Lab . END OF REPORT DEPARTMENT OF PATHOLOGY, [address] [place] [address] Talat Craig M.D. Director [facility] # [id number] 5 REDRAW URINE Verbal to [id number] by [email or web address] at 1350 on 05/14/19. 6 SEE RESULT BELOW Name: JEROMYPENNY : [address]: Peg Sandhu DO Acct: [id number] Unit: [id number] AGE: 83 [facility] Re05/13/19 SEX: F Status: REG REF SPEC: [id number] SURI: 05/13/19-[address]: Peg Sandhu DO REQ: [id number] RECD: 05/13/191 STATUS: COMP _ SOURCE: URINE SPDESC: ORDERED: Urine Culture COMMENTS: "REDRAW" URINE Verbal to [id number] by [email or web address] at 1350 on 05/14/19. QUERIES: Urine Source: Clean Catch Procedure Result Reported Site Urine Culture Final 05/15/19- 0954 ML Organism 1 KLEBSIELLA PNEUMONIAE Willow Count >100,000 (Many) CFU/ML 1. KLEBSIELLA PNEUMONIAE [...] . END OF REPORT DEPARTMENT OF PATHOLOGY, [address] [place] [address] Talat Craig M.D. Director [facility] # [id number] 7 SEE RESULT BELOW Name: PENNY PINZON : [address]: Peg Sandhu DO Acct: [id number] Unit: [id number] AGE: 83 Location: LAB Re04/28/19 SEX: F Status: REG REF SPEC: [id number] SURI: 04/28/[address]: Peg Sandhu DO REQ: [id number] RECD: 04/28/19 STATUS: COMP _ SOURCE: URINE SPDESC: ORDERED: Urine Culture Procedure Result Reported Site Urine Culture Final 04/30/19- 832 ML Organism 1 ESCHERICHIA COLI Willow Count >100,000 (Many) CFU/ML 1. ESCHERICHIA COLI [...] . END OF REPORT DEPARTMENT OF PATHOLOGY, [address] [place] [address] Talat Craig M.D. Director [facility] # [id number] Procedures Date Code Description Status 07/08/2019 96879 EKG Tracing & Interpretation Completed 07/02/2018 051068768 Diabetic Retinal Eye Exam Completed 09/28/2017 531997038 Diabetic Retinal Eye Exam Completed 04/26/2017 254899919 Diabetic Retinal Eye Exam Completed 04/11/2017 662194272 Diabetic Retinal Eye Exam Completed Medical Devices Description No Information Available Encounters Type Date Location Provider Dx Diagnosis Office Visit 06/20/2019 [facility] Internal Boogie Bhakta, R30.0 Dysuria 10:20a Medicine - Ccmob Ana Office Visit 05/13/2019 [facility] Internal Peg Sandhu, N39.0 Urinary tract 10:40a Medicine - Suite DO infection, site R not specified Office Visit 04/28/2019 [facility] Internal Peg Sandhu, R30.0 Dysuria 2:00p Medicine - Suite DO R Assessments Date Code Description Provider 07/08/2019 I10 Essential (primary) hypertension David Estrada [...] Peg Sandhu DO Plan of Treatment Future Appointment(s):07/22/2019 2:30 pm - Jennifer Saeed N.P. at [facility]07/22/2019 2:30 pm - [facility] Pacer Schedule at [facility]07/18/2019 3:00 pm - [place] [facility] Schedule at [facility]09/02/2019 10:45 am - Diallo Cramer M.D. at [facility]2018 - David Estrada M.D.I10 Essential (primary) hypertensionFollow up:ov with ROTARY DRILL OPERATOR in 2 weeks to check bp's and home unit ov JFM 10 mRecommendations:check bp's once a day for the next week and bring to next ovE78.00 Pure hypercholesterolemia, pghjgoktcaiQ98.1 Nonrheumatic aortic (valve) insufficiencyNew Orders:Echocardiogram, Scheduled: 07/18/19R42 DizzinessFollow up:interrogate linqR03.0 Elevated blood-pressure reading without diagnosis of hypertensionNew Orders:Ambulatory Blood Pressure Monitor, Ordered: 07/08/19 Functional Status Description No Information Available Mental Status Description No Information Available Referrals Refer to Reason for Referral Status Appt Date Bo Pendleton MD Recurrent UTI sx over the past 2 months Sent [address] [place] [address] [phone]
[2019-09-02 12:39] VITALS: BP 147/74
--- NOTE | 2019-09-02 12:47 | UC ---
Skin Complaint HPI - HPI Summary HPI Summary: 84-year-old female who awakened during the night and on her way to the bathroom tripped and fell sustaining 3 small skin tears to her right upper arm. She states she then got back into bed and went back to sleep. She denies hitting her head, no loss of consciousness and denies any neck pain. She and her are not sure of her last tetanus immunization. - History of Current Complaint Chief Complaint: UCLaceration Time Seen by Provider: 09/02/19 12:39 Stated Complaint: WOUND ON SHOULDER Hx Obtained From: Patient, Family/Barrel Rifler Operator ?: No Onset/Duration: Sudden Onset Skin Exposure Onset/Duration: Hours Ago Timing: Constant Onset Severity: Mild Current Severity: Mild Pain Intensity: 0 Location: Other - Right upper arm Aggravating Factor(s): Touch Alleviating Factor(s): Nothing Associated Signs & Symptoms: Positive: Bruising - Bruising to right upper arm, 3 skin tears right upper arm Related History: Trauma - Trauma to the area from falling during the night - Allergy/Home Medications Allergies/Adverse Reactions: Allergies Allergy/AdvReac Type Severity Reaction Status Date / Time nitrofurantoin Allergy Intermediate Rash Verified 09/02/19 12:38 [From Macrodantin] morphine Allergy Mild Nausea Verified 09/02/19 12:38 Home Medications: Home Medications Calcium Citrate/Vitamin D3 [Citracal + D Maximum Caplet] 1 tab PO DAILY [History Confirmed 09/02/19] Lisinopril [Zestril 10 MG-] 15 mg PO DAILY 09/02/19 [History Confirmed 09/02/19] PMH/Surg Hx/FS Hx/Imm Hx Previously Healthy: Yes Cardiovascular History: Hypertension - Surgical History Surgical History: Yes Surgery Procedure, Year, and Place: 2002 WISDOM TEETH [place]. 2007 L TOTAL KNEE [facility]. 2008 RT TOTAL KNEE [facility]. 2010 L TOTAL HIP [facility]. R TOTAL HIP - Family History Known Family History: Positive: Hypertension - Social History Occupation: Retired Lives: With Family Alcohol Use: Daily Alcohol Amount: 1 glass wine Substance Use Type: None Smoking Status (MU): Never Smoked Tobacco Review of Systems All Other Systems Reviewed And Are Negative: Yes Skin: Positive: Bruising - Patient has scattered bruising right upper arm., Other - Has 3 skin tears on her right upper arm. Musculoskeletal: Positive: Other: - Denies neck pain, denies head pain denies right upper arm pain other than the superficial pain of the skin tears. Is Patient Immunocompromised?: No Physical Exam Triage Information Reviewed: Yes Appearance: Well-Appearing, No Pain Distress, Well-Nourished Vital Signs: Initial Vital Signs Temp 98.4 F 09/02/19 12:24 Pulse 63 09/02/19 12:24 Resp 18 09/02/19 12:24 BP 147/74 09/02/19 12:24 Pulse Ox 97 09/02/19 12:24 Vital Signs Reviewed: Yes Eyes: Positive: Conjunctiva Clear - PERRLA, EOMI ENT: Positive: Pharynx normal, TMs normal, Uvula midline Neck: Positive: Supple, Nontender - C-spine nontender, No Lymphadenopathy Respiratory: Positive: Chest non-tender, Lungs clear, Normal breath sounds, No respiratory distress, No accessory muscle use Cardiovascular: Positive: RRR, No Murmur, Pulses Normal, Brisk Capillary Refill Abdomen Description: Positive: Nontender, No Organomegaly, Soft. Negative: CVA Tenderness (R), CVA Tenderness (L), Hepatomegaly, Splenomegaly Bowel Sounds: Positive: Present Musculoskeletal Exam: Normal Musculoskeletal: Positive: Strength Intact, ROM Intact, No Edema, Other: - Good arm and leg strength against resistance, full range of motion. Right humerus is nontender on palpation other than over the skin tears. Good peripheral pulses neuro sensation and capillary refill. Good shoulder and elbow stability. Skull Intact and nontender Neurological: Positive: Alert, Muscle Tone Normal - Cranial nerves II through XII are intact. Psychological: Positive: Normal Response To Family, Age Appropriate Behavior Skin: Positive: Other - Patient has 3 skin tears on her right upper arm. The proximal skin tear is approximately 0.5 cm in length. The middle skin tear is approximately 1.5 cm in length. The distal skin tear is approximately 1.5 cm in length. Bleeding is controlled. Course/Dx - Course Course Of Treatment: The patient is comfortable here she was given Tdap tetanus immunization. The skin tears were dressed using bacitracin ointment, Adaptic, 4 x 4 gauze, and wrapped with Cori. She is to watch for signs of infection and follow-up with her primary care provider as needed. Her is in attendance with her and he and she verbalized understanding of the instructions. - Diagnoses Provider Diagnosis: Contusion of right upper arm, Skin tear of right upper arm without complication Discharge ED - Sign-Out/Discharge Documenting (check all that apply): Patient Departure All imaging exams completed and their final reports reviewed: No Studies - Discharge Plan Condition: Fair Disposition: HOME Patient Education Materials: Skin Tear (ED) Referrals: Boogie Bhakta MD [Primary Care Provider] - Additional Instructions: Change her dressing daily. Apply bacitracin ointment and then a nonstick pad and then gauze and then wrapped with Cori gauze. Watch for signs of infection and follow-up with your primary care provider if you get any pus drainage, hot, red, tender, fever or red streaks up your arm. Apply ice to the arm intermittently throughout the day. May take Tylenol for pain. - Billing Disposition and Condition Condition: FAIR Disposition: Home
[2019-09-02] MEDS ORDERED: Tetan/Diph/Pertus SYR(Tdap)* 0.5 ML SYR(BOOSTRIX) use SYR contains LATEX IM ONE (13:14)
== END 2019-09-02 13:30 | disposition home or self-care (01) ==
LOC: UCEAST 12:15
DX: S41.111A Laceration without foreign body of right upper arm, initial encounter (principal); S40.022A Contusion of left upper arm, initial encounter; Z23 Encounter for immunization; Z88.1 Allergy status to other antibiotic agents; Z88.5 Allergy status to narcotic agent; W01.0XXA Fall on same level from slipping, tripping and stumbling without subsequent striking against object, initial encounter; Y92.9 Unspecified place or not applicable
CPT/HCPCS: 90471; 90715; 99212; G0463